=== PATIENT | female | born 1980 | race Caucasian/White ===

== ENCOUNTER 2016-07-26 20:30 | Emergency (ER) | payer OTHER ==
[2016-07-26] MEDS ORDERED: Proparacaine 0.5% Ophth Soln 15 ML Bottle EYEBOTH ONE (20:36)
[2016-07-26] MEDS ORDERED: Proparacaine 0.5% Ophth Soln 15 ML Bottle ONE (20:37)
[2016-07-26 20:42] VITALS: BP 175/98
[2016-07-26] MEDS ORDERED: Erythromycin Base 0.5% Ophth Oint 1 GM Tube EYEBOTH ONE (20:45)
--- NOTE | 2016-07-26 20:58 | EDM.PDOC ---
ED HPI EYE COMPLAINT - General Chief Complaint: Eye Problems Stated Complaint: PT HURT LT EYE Time Seen by Provider: 07/26/16 20:40 - History of Present Illness INITIAL COMMENTS - FREE TEXT/NARRATIVE: HISTORY AND PHYSICAL: History of present illness: Patient 36-year-old white female presents status post blunt trauma to her left eye which occurred with the corner of a bed frame this was blood in backboard she denies other trauma or concern she does have a history diabetes Review of systems: As per history of present illness and below otherwise all systems reviewed and negative. Past medical history: As per history of present illness and as reviewed below otherwise noncontributory. Surgical history: As per history of present illness and as reviewed below otherwise noncontributory. Social history: No reported history of drug or alcohol abuse. Family history: As per history of present illness and as reviewed below otherwise noncontributory. Physical exam: HEENT: Atraumatic, normocephalic, pupils reactive, negative for conjunctival pallor or scleral icterus, mucous membranes moist, throat clear, neck supple, nontender, trachea midline. Anterior chamber clear funduscopic exam limited Globe grossly intact large corneal abrasion noted with fluoresceins stain 12:00 to 5:00 position Lungs: Clear to auscultation, breath sounds equal bilaterally, chest nontender. Heart: S1S2, regular, negative for clicks, rubs, or JVD. Abdomen: Soft, nondistended, nontender. Negative for masses or hepatosplenomegaly. Negative for costovertebral tenderness. Pelvis: Stable nontender. Genitourinary: Deferred. Rectal: Deferred. Extremities: Atraumatic, negative for cords or calf pain. Neurovascular unremarkable. Neuro: Awake, alert, oriented. Cranial nerves II through XII unremarkable. Cerebellum unremarkable. Motor and sensory unremarkable throughout. Exam nonfocal. Diagnostics: None Therapeutics: Ophthalmic irrigation and erythromycin ophthalmic ointment Impression: #1 corneal abrasion left eye secondary to blunt trauma Definitive disposition and diagnosis as appropriate pending reevaluation and review of above. - Related Data Allergies/ADRs: Allergies No Known Allergies Allergy (Verified 04/21/16 10:10) Home Meds: Ambulatory Orders Medication Instructions Recorded Confirmed DULoxetine [Cymbalta] 1 cap PO QAM 02/26/16 07/26/16 Diazepam [Valium] 1 tab PO ASDIRECTED PRN 02/26/16 07/26/16 Gabapentin [Neurontin] 2 cap PO TID 02/26/16 07/26/16 Insulin Aspart [NovoLOG] 200 unit SQ ASDIRECTED 02/26/16 07/26/16 Insulin Detemir [Levemir] 150 unit SQ BID 02/26/16 07/26/16 Losartan Potassium 1 tab PO QAM 02/26/16 07/26/16 Methocarbamol 1 tab PO TID 02/26/16 07/26/16 Phentermine HCl 1 cap PO ACBREAKFAST 02/26/16 07/26/16 Zolpidem Tartrate 1 tab PO BEDTIME 02/26/16 07/26/16 atorvaSTATin Calcium [Atorvastatin 1 tab PO DAILY 02/26/16 07/26/16 Calcium] buPROPion HCl [Wellbutrin Xl] 1 tab PO QAM 02/26/16 07/26/16 metFORMIN HCl [Glucophage] 1 tab PO BID 02/26/16 07/26/16 Sulfamethoxazole/Trimethoprim 1 each PO BID #28 tablet 04/21/16 07/26/16 [Bactrim Ds Tablet] Past Medical History Other HEENT History: has upper denture Cardiovascular History: Reports: High cholesterol, Hypertension Respiratory History: Reports: Pneumothorax Other Respiratory History: fx ribs and punctured lung from falling off a horse Gastrointestinal History: Reports: GERD Genitourinary History: Reports: 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: Musculoskeletal History: Reports: Back pain, chronic, Fracture, Neck pain, chronic Other Musculoskeletal History: hx of fx ankle and ribs, has myofacial pain syndrome Neurological History: Reports: Neuropathy, diabetic Other Neuro History: 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 Psychiatric History: Reports: Anxiety, Depression Endocrine/Metabolic History: Reports: Diabetes, type I, Obesity/BMI 30+ Hematologic History: Reports: None Immunologic History: Reports: None Oncologic (Cancer) History: Reports: None Dermatologic History: Reports: None - Infectious Disease History Infectious Disease History: Reports: Chicken pox - Past Surgical History Head Surgeries/Procedures: Reports: None HEENT Surgical History: Reports: None Cardiovascular Surgical History: Reports: None Other Respiratory Surgeries/Procedures: chest tube insertion GI Surgical History: Reports: Appendectomy Female Surgical History: Reports: section Endocrine Surgical History: Reports: None Neurological Surgical History: Reports: None Musculoskeletal Surgical History: Reports: None Oncologic Surgical History: Reports: None Dermatological Surgical History: Reports: None Social & Family History - Family History Family Medical History: Noncontributory - Tobacco Use Smoking Status *Q: Former Smoker - Caffeine Use Caffeine Use: Reports: Soda - Recreational Drug Use Recreational Drug Use: No Drug Use in Last 12 Months: No ED ROS GENERAL - Review of Systems Review Of Systems: ROS reveals no pertinent complaints other than HPI. ED EXAM GENERAL W FULL EYE - Physical Exam Exam: See Below (See dictation) Course - Vital Signs Text/Narrative:: Discuss case with Dr. Swan ophthalmology solution specialist will see the patient in the morning patient will also be instructed to call ER for any persistent or worsening pain and Dr. Garcia will be available accordingly patient given hydrocodone for pain erythromycin abdomen appointment is to return as needed as discussed Last Recorded V/S: Last Vital Signs Temp 36.0 C 07/26/16 20:39 Pulse 102 H 07/26/16 20:39 Resp 20 07/26/16 20:39 BP 175/98 H 07/26/16 20:39 Pulse Ox 97 07/26/16 20:39 - Orders/Labs/Meds Meds: Medications Discontinued Medications Generic Name Dose Route Start Last Admin Trade Name Rudolphq PRN Reason Stop Dose Admin Erythromycin 1 gm 07/26/16 20:45 07/26/16 20:52 Erythromycin 0.5% Ophth Oint EYEBOTH 07/26/16 20:46 1 tab ONETIME ONE Administration Proparacaine HCl 1 ml 07/26/16 20:36 07/26/16 20:53 Proparacaine 0.5% Ophth Soln EYEBOTH 07/26/16 20:37 2 drop ONETIME ONE Administration Proparacaine HCl Confirm 07/26/16 20:37 07/26/16 20:46 Proparacaine 0.5% Ophth Soln Administered 07/26/16 20:38 Not Given Dose 15 ml .ROUTE .STK-MED ONE Departure - Departure Time of Disposition: 20:57 Disposition: Home, Self-Care 01 Condition: good Clinical Impression: Corneal abrasion Referrals: PCP,None [Primary Care Provider] - Forms: ED Department Discharge Additional Instructions: Appointment tomorrow at 11am at [facility] with Dr. Garcia. Please call the ER if pain is unmanageable. The following information is given to patients seen in the emergency department who are being discharged to home. This information is to outline your options for follow-up care. We provide all patients seen in our emergency department with a follow-up referral. The need for follow-up, as well as the timing and circumstances, are variable depending upon the specifics of your emergency department visit. If you don't have a primary care physician on staff, we will provide you with a referral. We always advise you to contact your personal physician following an emergency department visit to inform them of the circumstance of the visit and for follow-up with them and/or the need for any referrals to a consulting specialist. The emergency department will also refer you to a specialist when appropriate. This referral assures that you have the opportunity for followup care with a specialist. All of these measure are taken in an effort to provide you with optimal care, which includes your followup. Under all circumstances we always encourage you to contact your private physician who remains a resource for coordinating your care. When calling for followup care, please make the office aware that this follow-up is from your recent emergency room visit. If for any reason you are refused follow-up, please contact the [facility] emergency department at and asked to speak to the emergency department charge nurse. Jessica as prescribed followup above as discussed return as needed this is
== END 2016-07-26 21:06 | disposition home or self-care (01) ==
LOC: MW.ED 20:30
DX: S05.02XA Injury of conjunctiva and corneal abrasion without foreign body, left eye, initial encounter (principal); E78.00 Pure hypercholesterolemia, unspecified; I10 Essential (primary) hypertension; K21.9 Gastro-esophageal reflux disease without esophagitis; F41.9 Anxiety disorder, unspecified; F32.9 Major depressive disorder, single episode, unspecified; E10.9 Type 1 diabetes mellitus without complications; E66.9 Obesity, unspecified; Z90.49 Acquired absence of other specified parts of digestive tract; Z87.891 Personal history of nicotine dependence; W22.8XXA Striking against or struck by other objects, initial encounter
CPT/HCPCS: 99283; A9270

== ENCOUNTER 2016-07-27 23:00 | Emergency (ER) | payer OTHER ==
[2016-07-27] MEDS ORDERED: Proparacaine 0.5% Ophth Soln 15 ML Bottle ONE (23:06)
[2016-07-27 23:10] VITALS: BP 167/77
--- NOTE | 2016-07-27 23:13 | EDM.PDOC ---
ED HPI EYE COMPLAINT - General Chief Complaint: Eye Problems Stated Complaint: PT HURT EYE Time Seen by Provider: 07/27/16 23:11 - History of Present Illness INITIAL COMMENTS - FREE TEXT/NARRATIVE: HISTORY AND PHYSICAL: History of present illness: Patient Jeremias Herrera presents 24 hours status post coracobrachialis she did see ophthalmology today is here with recurrent pain there is no new trauma or other concern. Review of systems: As per history of present illness and below otherwise all systems reviewed and negative. Past medical history: As per history of present illness and as reviewed below otherwise noncontributory. Surgical history: As per history of present illness and as reviewed below otherwise noncontributory. Social history: No reported history of drug or alcohol abuse. Family history: As per history of present illness and as reviewed below otherwise noncontributory. Physical exam: HEENT: Atraumatic, normocephalic, pupils reactive, negative for conjunctival pallor or scleral icterus, mucous membranes moist, throat clear, neck supple, nontender, trachea midline. No significant interval change no worsening Lungs: Clear to auscultation, breath sounds equal bilaterally, chest nontender. Heart: S1S2, regular, negative for clicks, rubs, or JVD. Abdomen: Soft, nondistended, nontender. Negative for masses or hepatosplenomegaly. Negative for costovertebral tenderness. Pelvis: Stable nontender. Genitourinary: Deferred. Rectal: Deferred. Extremities: Atraumatic, negative for cords or calf pain. Neurovascular unremarkable. Neuro: Awake, alert, oriented. Cranial nerves II through XII unremarkable. Cerebellum unremarkable. Motor and sensory unremarkable throughout. Exam nonfocal. Diagnostics: None Therapeutics: Proparacaine ophthalmic drops and reapplication of her patch Impression: #1 corneal abrasion left eye Definitive disposition and diagnosis as appropriate pending reevaluation and review of above. - Related Data Allergies/ADRs: Allergies No Known Allergies Allergy (Verified 04/21/16 10:10) Home Meds: Ambulatory Orders Medication Instructions Recorded Confirmed DULoxetine [Cymbalta] 1 cap PO QAM 02/26/16 07/26/16 Diazepam [Valium] 1 tab PO ASDIRECTED PRN 02/26/16 07/26/16 Gabapentin [Neurontin] 2 cap PO TID 02/26/16 07/26/16 Insulin Aspart [NovoLOG] 200 unit SQ ASDIRECTED 02/26/16 07/26/16 Insulin Detemir [Levemir] 150 unit SQ BID 02/26/16 07/26/16 Losartan Potassium 1 tab PO QAM 02/26/16 07/26/16 Methocarbamol 1 tab PO TID 02/26/16 07/26/16 Phentermine HCl 1 cap PO ACBREAKFAST 02/26/16 07/26/16 Zolpidem Tartrate 1 tab PO BEDTIME 02/26/16 07/26/16 atorvaSTATin Calcium [Atorvastatin 1 tab PO DAILY 02/26/16 07/26/16 Calcium] buPROPion HCl [Wellbutrin Xl] 1 tab PO QAM 02/26/16 07/26/16 metFORMIN HCl [Glucophage] 1 tab PO BID 02/26/16 07/26/16 Sulfamethoxazole/Trimethoprim 1 each PO BID #28 tablet 04/21/16 07/26/16 [Bactrim Ds Tablet] Past Medical History Other HEENT History: has upper denture Cardiovascular History: Reports: High cholesterol, Hypertension Respiratory History: Reports: Pneumothorax Other Respiratory History: fx ribs and punctured lung from falling off a horse Gastrointestinal History: Reports: GERD Genitourinary History: Reports: None 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: Musculoskeletal History: Reports: Back pain, chronic, Fracture, Neck pain, chronic Other Musculoskeletal History: hx of fx ankle and ribs, has myofacial pain syndrome Neurological History: Reports: Neuropathy, diabetic Other Neuro History: 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 Psychiatric History: Reports: Anxiety, Depression Endocrine/Metabolic History: Reports: Diabetes, type I, Obesity/BMI 30+ Hematologic History: Reports: None Immunologic History: Reports: None Oncologic (Cancer) History: Reports: None Dermatologic History: Reports: None - Infectious Disease History Infectious Disease History: Reports: Chicken pox - Past Surgical History Head Surgeries/Procedures: Reports: None HEENT Surgical History: Reports: None Cardiovascular Surgical History: Reports: None Other Respiratory Surgeries/Procedures: chest tube insertion GI Surgical History: Reports: Appendectomy Female Surgical History: Reports: section Endocrine Surgical History: Reports: None Neurological Surgical History: Reports: None Musculoskeletal Surgical History: Reports: None Oncologic Surgical History: Reports: None Dermatological Surgical History: Reports: None Social & Family History - Family History Family Medical History: Noncontributory - Tobacco Use Smoking Status *Q: Never Smoker - Caffeine Use Caffeine Use: Reports: None - Recreational Drug Use Recreational Drug Use: No Drug Use in Last 12 Months: No ED ROS GENERAL - Review of Systems Review Of Systems: ROS reveals no pertinent complaints other than HPI. ED EXAM GENERAL W FULL EYE - Physical Exam Exam: See Below (See dictation) Course - Vital Signs Text/Narrative:: Discussed case with ophthalmology Dr. Garcia who agrees with reapplication of patch proparacaine drops prior to discharge followup as discussed Last Recorded V/S: Last Vital Signs Temp 36.5 C 07/27/16 23:08 Pulse 95 07/27/16 23:08 Resp 22 H 07/27/16 23:08 BP 167/77 H 07/27/16 23:08 Pulse Ox 93 L 07/27/16 23:08 - Orders/Labs/Meds Meds: Medications Discontinued Medications Generic Name Dose Route Start Last Admin Trade Name Freq PRN Reason Stop Dose Admin Proparacaine HCl Confirm 07/27/16 23:06 Proparacaine 0.5% Ophth Soln Administered 07/27/16 23:07 Dose 15 ml .ROUTE .STK-MED ONE Departure - Departure Time of Disposition: 23:13 Disposition: Home, Self-Care 01 Condition: good Clinical Impression: Corneal abrasion Forms: ED Department Discharge Additional Instructions: The following information is given to patients seen in the emergency department who are being discharged to home. This information is to outline your options for follow-up care. We provide all patients seen in our emergency department with a follow-up referral. The need for follow-up, as well as the timing and circumstances, are variable depending upon the specifics of your emergency department visit. If you don't have a primary care physician on staff, we will provide you with a referral. We always advise you to contact your personal physician following an emergency department visit to inform them of the circumstance of the visit and for follow-up with them and/or the need for any referrals to a consulting specialist. The emergency department will also refer you to a specialist when appropriate. This referral assures that you have the opportunity for followup care with a specialist. All of these measure are taken in an effort to provide you with optimal care, which includes your followup. Under all circumstances we always encourage you to contact your private physician who remains a resource for coordinating your care. When calling for followup care, please make the office aware that this follow-up is from your recent emergency room visit. If for any reason you are refused follow-up, please contact the [facility] emergency department at and asked to speak to the emergency department charge nurse. Followup ophthalmology as discussed patch as directed return as needed as discussed
[2016-07-27] MEDS ORDERED: Proparacaine 0.5% Ophth Soln 15 ML Bottle EYELF ONE (23:16)
== END 2016-07-27 23:24 | disposition home or self-care (01) ==
LOC: MW.ED 23:00
DX: S05.02XA Injury of conjunctiva and corneal abrasion without foreign body, left eye, initial encounter (principal); I10 Essential (primary) hypertension; E78.00 Pure hypercholesterolemia, unspecified; K21.9 Gastro-esophageal reflux disease without esophagitis; E10.9 Type 1 diabetes mellitus without complications; E66.9 Obesity, unspecified; F41.8 Other specified anxiety disorders; Z90.49 Acquired absence of other specified parts of digestive tract; Z98.890 Other specified postprocedural states; Z79.899 Other long term (current) drug therapy; Z68.42 Body mass index [BMI] 45.0-49.9, adult; X58.XXXA Exposure to other specified factors, initial encounter
CPT/HCPCS: 99282; 99283

== ENCOUNTER 2016-11-17 11:56 | Emergency (ER) | payer OTHER ==
[2016-11-17] MEDS ORDERED: Proparacaine 0.5% Ophth Soln 15 ML Bottle EYELF STA (12:15)
[2016-11-17] MEDS ORDERED: Erythromycin Base 0.5% Ophth Oint 1 GM Tube EYELF ONE (12:37)
--- NOTE | 2016-11-17 12:50 | EDM.PDOC ---
ED HPI GENERAL MEDICAL PROBLEM - General Chief Complaint: Eye Problems Stated Complaint: HIT IN THE EYE WITH REMOTE Time Seen by Provider: 11/17/16 12:16 Source of Information: Reports: Patient, Family History Limitations: Reports: No Limitations - History of Present Illness INITIAL COMMENTS - FREE TEXT/NARRATIVE: HISTORY AND PHYSICAL: []36-year-old female presenting with eye pain to her left eye History of Present Illness: []Patient was in bed and the remote fell striking her in her left eye yesterday Pain has not lessened Review of Systems: As per history of present illness and below otherwise all systems reviewed and negative. Past medical history: As per history of present illness and as reviewed below otherwise noncontributory. Surgical history: As per history of present illness and as reviewed below otherwise noncontributory. Social history: No reported history of drug or alcohol abuse. Family history: As per history of present illness and as reviewed below otherwise noncontributory. Physical exam: Oriented female alert, constantly rubbing her eye. Answering questions appropriately. HEENT: Atraumatic, normocehpalic, pupils reactive, negative for conjunctival pallor or scleral icterus, mucous membranes moist, throat clear, neck supple, nontender, trachea midline. Lungs: Clear to auscultation, breath sounds equal bilaterally, chest non tender. Extremities: Atraumatic, negative for cords or calf pain. Neurovascular unremarkable. Neuro: Awake, alert, oriented. Cranial nerves II through XII unremarkable. Cerebellum unremarkable. Motor and sensory unremarkable throughout. Exam nonfocal. Proparacaine drops were instilled with good anesthesia effect. [place]-Pen was utilized and 54 with the pressure with 95% sensitivity . Fluorescein strip was utilized and a Recinos lamp. A small corneal abrasion noted at the 5 o'clock position just at the line of the pupil and iris. Discussed the patient with Dr. Segundo Garcia, cotton wringer. He will see the patient tomorrow for follow-up. Diagnostics: [Recinos lamp] Therapeutics: [Proparacaine drops] Impression: [Corneal abrasion] Plan: [Erythromycin ointment and placed onto the lower eyelid. Soft tissue pad was placed and taped into position. Have contacted Dr. Garcia and he will work the patient into his schedule. Present to the [facility] at 8 AM for reevaluation Patient and are agreeable to this recommended course of action.] Definitive disposition and diagnosis as appropriate pending reevaluation and review of above. Onset: Sudden Duration: Day(s): (1) left eye Pain Score (Numeric/FACES): 9 - Related Data Allergies Allergy/AdvReac Type Severity Reaction Status Date / Time No Known Allergies Allergy Verified 11/17/16 12:07 Home Meds: Home Meds DULoxetine [Cymbalta] 1 cap PO QAM 02/26/16 [History] Diazepam [Valium] 1 tab PO ASDIRECTED PRN 02/26/16 [History] Gabapentin [Neurontin] 2 cap PO TID 02/26/16 [History] Insulin Aspart [NovoLOG] 200 unit SQ ASDIRECTED 02/26/16 [History] Insulin Detemir [Levemir] 150 unit SQ BID 02/26/16 [History] Losartan Potassium 1 tab PO QAM 02/26/16 [History] Methocarbamol 1 tab PO TID 02/26/16 [History] Phentermine HCl 1 cap PO ACBREAKFAST 02/26/16 [History] Zolpidem Tartrate 1 tab PO BEDTIME 02/26/16 [History] atorvaSTATin Calcium [Atorvastatin Calcium] 1 tab PO DAILY 02/26/16 [History] buPROPion HCl [Wellbutrin Xl] 1 tab PO QAM 02/26/16 [History] metFORMIN HCl [Glucophage] 1 tab PO BID 02/26/16 [History] Sulfamethoxazole/Trimethoprim [Bactrim Ds Tablet] 1 each PO BID #28 tablet 04/21 [Rx] Past Medical History Other HEENT History: has upper denture Cardiovascular History: Reports: High Cholesterol, Hypertension Respiratory History: Reports: Pneumonia, Recurrent, Pneumothorax Other Respiratory History: fx ribs and punctured lung from falling off a horse Gastrointestinal History: Reports: GERD Genitourinary History: Reports: None 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: Musculoskeletal History: Reports: Back Pain, Chronic, Fracture, Neck Pain, Chronic Other Musculoskeletal History: hx of fx ankle and ribs, has myofacial pain syndrome Neurological History: Reports: Neuropathy, Diabetic Other Neuro History: 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 Psychiatric History: Reports: Anxiety, Bipolar, Depression Endocrine/Metabolic History: Reports: Diabetes, Type I, Obesity/BMI 30+ Hematologic History: Reports: None Immunologic History: Reports: None Oncologic (Cancer) History: Reports: None Dermatologic History: Reports: None - Infectious Disease History Infectious Disease History: Reports: None, Chicken Pox - Past Surgical History Head Surgeries/Procedures: Reports: None HEENT Surgical History: Reports: None Other Respiratory Surgeries/Procedures: chest tube insertion GI Surgical History: Reports: Appendectomy Female Surgical History: Reports: Section Oncologic Surgical History: Reports: None Dermatological Surgical History: Reports: None Social & Family History - Family History Family Medical History: Noncontributory - Tobacco Use Smoking Status *Q: Former Smoker Used Tobacco, but Quit: No - Caffeine Use Caffeine Use: Reports: Coffee - Recreational Drug Use Recreational Drug Use: No Drug Use in Last 12 Months: No ED ROS GENERAL - Review of Systems Review Of Systems: ROS reveals no pertinent complaints other than HPI. ED EXAM GENERAL W FULL EYE - Physical Exam Exam: See Below (See dictation) Course - Vital Signs Last Recorded V/S: Last Vital Signs Temp 36.1 C 11/17/16 12:07 Pulse 85 11/17/16 12:07 Resp 18 11/17/16 12:07 BP 166/93 H 11/17/16 12:07 Pulse Ox 100 11/17/16 12:07 - Orders/Labs/Meds Meds: Medications Discontinued Medications Generic Name Dose Route Start Last Admin Trade Name Do PRN Reason Stop Dose Admin Erythromycin 1 gm 11/17/16 12:37 Erythromycin 0.5% Ophth Oint EYELF 11/17/16 12:38 ONETIME ONE Proparacaine HCl 1 ml 11/17/16 12:15 11/17/16 12:20 Proparacaine 0.5% Ophth Soln EYELF 11/17/16 12:16 1 ml NOW STA Administration Departure - Departure Time of Disposition: 12:50 Disposition: Home, Self-Care 01 Condition: Good Clinical Impression: Corneal abrasion Qualifiers: Encounter type: initial encounter Laterality: left Qualified Code(s): S05.02XA - Injury of conjunctiva and corneal abrasion without foreign body, left eye, initial encounter - Discharge Information Referrals: Segundo Covington MD [Primary Care Provider] - Forms: ED Department Discharge Additional Instructions: The following information is given to patients seen in the emergency department who are being discharged to home. This information is to outline your options for follow-up care. We provide all patients seen in our emergency department with a follow-up referral. The need for follow-up, as well as the timing and circumstances, are variable depending upon the specifics of your emergency department visit. If you don't have a primary care physician on staff, we will provide you with a referral. We always advise you to contact your personal physician following an emergency department visit to inform them of the circumstance of the visit and for follow-up with them and/or the need for any referrals to a consulting specialist. The emergency department will also refer you to a specialist when appropriate. This referral assures that you have the opportunity for followup care with a specialist. All of these measure are taken in an effort to provide you with optimal care, which includes your followup. Under all circumstances we always encourage you to contact your private physician who remains a resource for coordinating your care. When calling for followup care, please make the office aware that this follow-up is from your recent emergency room visit. If for any reason you are refused follow-up, please contact the [facility] emergency department at and asked to speak to the emergency department charge nurse. Erythromycin ointment to left eye every 6 hours while awake See Dr. Segundo Garcia tomorrow morning 8 AM
[2016-11-17 13:45] VITALS: BP 142/70
== END 2016-11-17 13:05 | disposition home or self-care (01) ==
LOC: MW.ED 11:56
DX: S05.02XA Injury of conjunctiva and corneal abrasion without foreign body, left eye, initial encounter (principal); E78.00 Pure hypercholesterolemia, unspecified; I10 Essential (primary) hypertension; Z87.01 Personal history of pneumonia (recurrent); K21.9 Gastro-esophageal reflux disease without esophagitis; E11.40 Type 2 diabetes mellitus with diabetic neuropathy, unspecified; E66.9 Obesity, unspecified; F41.9 Anxiety disorder, unspecified; F32.9 Major depressive disorder, single episode, unspecified; Z90.49 Acquired absence of other specified parts of digestive tract; Z79.84 Long term (current) use of oral hypoglycemic drugs; Z79.4 Long term (current) use of insulin; Z68.41 Body mass index [BMI] 40.0-44.9, adult; Z79.899 Other long term (current) drug therapy; Z87.891 Personal history of nicotine dependence; W20.8XXA Other cause of strike by thrown, projected or falling object, initial encounter
CPT/HCPCS: 99283; A9270

== ENCOUNTER 2016-12-05 09:22 | Day surgery (SDC) | payer OTHER ==
[~2016-12-05 09:22] MED LIST: Bupivacaine 0.25%/EPINEPHrine 1:200,000 10 ML SDV ONE; Lactated Ringers 1,000 ML IV SCH; ceFAZolin 2 GM in Premix Bag 1 BAG IV ONE
[2016-12-05] MEDS ORDERED: Lidocaine 2% 5 ML SDV ONE (10:01)
[2016-12-05] MEDS ORDERED: fentaNYL 250 MCG/5 ML SDV ONE (10:01)
[2016-12-05] MEDS ORDERED: Propofol 200 MG/20 ML SDV ONE (10:01)
[2016-12-05] MEDS ORDERED: Midazolam 1 MG/ML 2 ML SDV ONE (10:01)
[2016-12-05] MEDS ORDERED: Ondansetron 4 MG/2 ML SDV ONE (10:01)
[2016-12-05] MEDS ORDERED: Succinylcholine/Normal Saline 200 MG/10 ML Syringe ONE (10:34)
--- NOTE | 2016-12-05 10:35 | PCM.PREANE ---
Preanesthetic Assessment - Anesthesia/Transfusion/Family Hx Anesthesia History: Prior Anesthesia Without Reaction Family History of Anesthesia Reaction: No Transfusion History: No Prior Transfusion(s) Intubation History: Unknown - Review of Systems General: No Symptoms Pulmonary: No Symptoms Cardiovascular: No Symptoms Gastrointestinal: No Symptoms Neurological: No Symptoms Other: Reports: None - Physical Assessment NPO Status Date: 12/04/16 NPO Status Time: 22:00 O2 Sat by Pulse Oximetry: 96 Respiratory Rate: 16 Vital Signs: Last Vital Signs Temp 36.7 C 12/05/16 09:43 Pulse 93 12/05/16 09:43 Resp 16 12/05/16 09:43 BP 146/83 H 12/05/16 09:43 Pulse Ox 96 12/05/16 09:43 Height: 1.75 m Weight: 138.346 kg ASA Class: 3 Mental Status: Alert & Oriented x3 Airway Class: Mallampati = 2 Dentition: Reports: Dentures (upper) Thyro-Mental Finger Breadths: 3 Mouth Opening Finger Breadths: 2 ROM/Head Extension: Full Lungs: Clear to Auscultation, Normal Respiratory Effort Cardiovascular: Regular Rate, Regular Rhythm - Lab Values: Laboratory Last Values Urine HCG, Qual NEGATIVE (NEGATIVE) 12/05/16 09:23 - Allergies Allergies/Adverse Reactions: Allergies Allergy/AdvReac Type Severity Reaction Status Date / Time No Known Allergies Allergy Verified 11/17/16 12:07 - Blood Blood Available: No - Anesthesia Plan Pre-Op Medication Ordered: None - Acknowledgements Anesthesia Type Planned: General Anesthesia Pt an Appropriate Candidate for the Planned Anesthesia: Yes Alternatives and Risks of Anesthesia Discussed w Pt/Guardian: Yes Pt/Guardian Understands and Agrees with Anesthesia Plan: Yes PreAnesthesia Questionnaire Other HEENT History: has upper denture Cardiovascular History: Reports: High Cholesterol, Hypertension Respiratory History: Reports: Pneumothorax (after falling off the horse at age 18) Other Respiratory History: fx ribs and punctured lung from falling off a horse Gastrointestinal History: Reports: GERD Genitourinary History: Reports: None 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: Musculoskeletal History: Reports: Back Pain, Chronic, Fracture, Neck Pain, Chronic Other Musculoskeletal History: hx of fx ankle and ribs, has myofacial pain syndrome Neurological History: Reports: Neuropathy, Diabetic Other Neuro History: 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 Psychiatric History: Reports: Anxiety, Bipolar, Depression Endocrine/Metabolic History: Reports: Diabetes, Type I, Obesity/BMI 30+ Hematologic History: Reports: None Immunologic History: Reports: None Oncologic (Cancer) History: Reports: None Dermatologic History: Reports: None - Infectious Disease History Infectious Disease History: Reports: None, Chicken Pox - Past Surgical History Head Surgeries/Procedures: Reports: None HEENT Surgical History: Reports: None Cardiovascular Surgical History: Reports: None Other Respiratory Surgeries/Procedures: chest tube insertion GI Surgical History: Reports: Appendectomy Female Surgical History: Reports: Section, Other (See Below) Other Female Surgeries/Procedures: previous exc of hidrandenitits suppurativa on left side in 02/17 Endocrine Surgical History: Reports: None Neurological Surgical History: Reports: None Musculoskeletal Surgical History: Reports: None Oncologic Surgical History: Reports: None Dermatological Surgical History: Reports: None - SUBSTANCE USE Smoking Status *Q: Former Smoker Tobacco Use Within Last Twelve Months: No, Cigarettes Recreational Drug Use History: No - HOME MEDS Home Medications: Home Meds Diazepam [Valium] 1 tab PO ASDIRECTED PRN 02/26/16 [History] Gabapentin [Neurontin] 2 cap PO TID 02/26/16 [History] Insulin Aspart [NovoLOG] 1 injection SQ ASDIRECTED 02/26/16 [History] Insulin Detemir [Levemir] 125 unit SQ BID 02/26/16 [History] Losartan Potassium 1 tab PO QAM 02/26/16 [History] Methocarbamol 1 tab PO TID PRN 02/26/16 [History] Zolpidem Tartrate 1 tab PO BEDTIME 02/26/16 [History] atorvaSTATin Calcium [Atorvastatin Calcium] 1 tab PO DAILY 02/26/16 [History] buPROPion HCl [Wellbutrin Xl] 1 tab PO QAM 02/26/16 [History] metFORMIN HCl [Glucophage] 1 tab PO BID 02/26/16 [History] Clindamycin Hcl [IJD: Clindamycin HCl] 300 mg PO TID 12/03/16 [History] Fluocinonide [Lidex 0.05% Crm] 1 applic TOP ASDIRECTED 12/03/16 [History] Hydrocortisone [Hydrocortisone 2.5% Crm] 1 applic TOP ASDIRECTED PRN 12/03/16 [ History] oxyCODONE HCl/Acetaminophen [oxyCODONE-Acetaminophen 5-325] 1 tab PO ASDIRECTED PRN 12/03/16 [History] traMADol HCl [Tramadol HCl] 1 tab PO ASDIRECTED PRN 12/03/16 [History] - CURRENT (IN HOUSE) MEDS Current Meds: Current Medications Lactated Ringer's (Ringers, Lactated) 1,000 mls @ 125 mls/hr IV ASDIRECTED HARVEY Last Admin: 12/05/16 09:45 Dose: 125 mls/hr Discontinued Medications Bupivacaine HCl/Epinephrine Bitart (Marcaine 0.25%/Epinephrine 1:200,000) Confirm Administered Dose 20 ml .ROUTE .STK-MED ONE Stop: 12/05/16 07:28 Fentanyl (Sublimaze) Confirm Administered Dose 250 mcg .ROUTE .STK-MED ONE Stop: 12/05/16 10:02 Cefazolin Sodium/Dextrose 2 gm (/ Premix) 50 mls @ 100 mls/hr IV ONETIME ONE Stop: 12/05/16 05:29 Lidocaine (Xylocaine-Mpf 2%) Confirm Administered Dose 5 ml .ROUTE .STK-MED ONE Stop: 12/05/16 10:02 Midazolam HCl (Versed 1 Mg/Ml) Confirm Administered Dose 2 mg .ROUTE .STK-MED ONE Stop: 12/05/16 10:02 Ondansetron HCl (Zofran) Confirm Administered Dose 4 mg .ROUTE .STK-MED ONE Stop: 12/05/16 10:02 Propofol (Diprivan 20 Ml) Confirm Administered Dose 200 mg .ROUTE .STK-MED ONE Stop: 12/05/16 10:02
[2016-12-05] MEDS ORDERED: HYDROmorphone 2 MG/ML Syringe ONE (11:22)
--- NOTE | 2016-12-05 11:40 | PCM.OPNOTE ---
- General Post-Op/Procedure Note Date of Surgery/Procedure: 12/05/16 Operative Procedure(s): excisional bx R axilla recurrent hidradenitis suppurativa Findings: active infection with purulent drainage from R axilla;[id number] Pre Op Diagnosis: r axilla hidradenitis suppurativa, recurrent Post-Op Diagnosis: Same Anesthesia Technique: General LMA Primary Surgeon: Leroy Yanes Pathology: sent Complications: None Condition: Good
[2016-12-05] MEDS ORDERED: Acetaminophen/oxyCODONE 325-7.5 MG Tab PO ONE (11:44)
[2016-12-05 13:18] VITALS: BP 135/65
--- NOTE | 2016-12-06 06:42 | OR ---
SURGEON: Leroy Yanes MD DATE OF PROCEDURE: 12/05/2016 PREOPERATIVE DIAGNOSIS: Recurrent hidradenitis suppurativa on the right axilla. POSTOPERATIVE DIAGNOSIS: Recurrent hidradenitis suppurativa on the right axilla. PROCEDURE PERFORMED: Excisional biopsy. COMPLICATIONS: None. FINDINGS: 1. Still has draining pus in the area. 2. Area is continued to be inflamed. 3. Skin excised is 10 x 3 cm. PROCEDURE IN DETAIL: The patient was taken to the operating room and placed in supine position. Upon induction of LMA, the patient's right axilla was prepped and draped in a sterile fashion and time-out was then called. The patient was identified, procedure was identified, and antibiotic given. Procedure was then started. A strip of skin 10 x 3 was excited from the right axilla and sent for pathology and excision down to the subcutaneous yellow fat and all the pink color suggested active hidradenitis disease excised to healthy tissue. Good hemostasis was achieved by use of electrocautery and the wound was irrigated and packed with half-inch iodoform gauze and followed by appropriate dressing. The patient was awakened, extubated and transferred to recovery room in hemodynamically stable condition. The patient tolerated the procedure well. There were no intraoperative complications. Dr. Yanes was present through the whole procedure. Thank you for the kind referral. KIMBERLY MCGUIRE /[id number]
== END 2016-12-05 13:10 | disposition home or self-care (01) ==
LOC: MW.SDS 09:22
PROVIDERS: ATTEND Surgery
PROC: 0JBD0ZZ Excision of Right Upper Arm Subcutaneous Tissue and Fascia, Open Approach (ICD-10-PCS; principal; 2016-12-05)
DX: L73.2 Hidradenitis suppurativa (principal); F41.9 Anxiety disorder, unspecified; F31.9 Bipolar disorder, unspecified; G56.00 Carpal tunnel syndrome, unspecified upper limb; M50.90 Cervical disc disorder, unspecified, unspecified cervical region; M54.5 Low back pain; G89.29 Other chronic pain; M79.7 Fibromyalgia; I10 Essential (primary) hypertension; E78.00 Pure hypercholesterolemia, unspecified; E10.40 Type 1 diabetes mellitus with diabetic neuropathy, unspecified; Z79.4 Long term (current) use of insulin; Z79.84 Long term (current) use of oral hypoglycemic drugs; Z79.899 Other long term (current) drug therapy; Z90.49 Acquired absence of other specified parts of digestive tract; Z98.890 Other specified postprocedural states; Z87.891 Personal history of nicotine dependence; Z68.42 Body mass index [BMI] 45.0-49.9, adult
CPT/HCPCS: 11450; 81025; 87070; 87075; 87205; J1170; J2250; J2405; J3010; J7120; 00300; 88305; J2704

== ENCOUNTER 2018-11-03 18:12 | Emergency (ER) | payer BC ==
--- NOTE | 2018-11-03 18:56 | EDM.PDOC ---
ED HPI GENERAL MEDICAL PROBLEM - General Chief Complaint: Lower Extremity Injury/Pain Stated Complaint: PT HURT RT LEG Time Seen by Provider: 11/03/18 18:46 - History of Present Illness INITIAL COMMENTS - FREE TEXT/NARRATIVE: HISTORY AND PHYSICAL: History of present illness: The patient is a 38-year-old female with a history of hypertension diabetes hypercholesterolemia and diabetic neuropathy who follows with Dr. Covington and has had chronic issues with pain in her lumbar back legs and hips for which she takes multiple medications and has seen our pain specialist Dr. Lu, whom she does not follow any more, and presents saying that she is concerned about increasing pain in her right leg with twitching that she has noticed that started in the last 24 hours. She has not had any recent new trauma and she says that her hemoglobin A1c is 6 and she is off her regular insulin currently. She does tell me that she still eats what she wants and adjust her sugars with insulin therapy although she knows that is not a healthy way to approach things. She says that she is not having any urinary complaints no bowel or bladder disturbances and the pain is localized to her right hip and leg area and she is concerned about new issues problems or circulation issues. She has had x-rays of her hips and back in the past at [facility] and she had an MRI here in May 2018 which revealed a moderate left paracentral disc protrusion at T11-T12 is abutting the spinal cord with mild left neuroforaminal foraminal stenosis. She says in the past she did have pain on the left side and now it is on the right side. She said after that MRI she did to physical therapy and she sees a chiropractor on a regular basis. She says she takes over- the-counter ibuprofen and was told by Dr. Covington she can take up to 12 generic tablets a day and she's been taking about 20 for the last several days to few weeks and she is also on high-dose gabapentin. She says she has tramadol that is not working and in the past Dr. Covington has given her [place] in limited amounts to help her get through episodes of this pain. With all of this going on in the last few days to one week she has not contacted Dr. Covington although she repeatedly tells me that Dr. Covington and her speak often about her symptoms and her management plan. She has no weakness numbness or tingling in her lower extremities. She says that she is here mostly because of the pain over the last 24 hours and of this new twitching that is occurring sporadically and she was concerned about it. Use of breath fevers or chills that she is eating and drinking normally with normal urine output and stools. According to the patient on our conversation and interview Dr. Covington's functioning as her pain management physician currently. She says that intermittently her legs will feel hot and feel cold internally but when she touches them or looks at them they look and feel normal Review of systems: As per history of present illness and below otherwise all systems reviewed and negative. Past medical history: As per history of present illness and as reviewed below otherwise noncontributory. Surgical history: As per history of present illness and as reviewed below otherwise noncontributory. Social history: No reported history of drug or alcohol abuse. Family history: As per history of present illness and as reviewed below otherwise noncontributory. Physical exam: General: Well-developed well-nourished overweight female who is nontoxic and moves very easily in the ED without distress. HEENT: Atraumatic, normocephalic,, negative for conjunctival pallor or scleral icterus, mucous membranes moist, throat clear, neck supple, nontender, trachea midline. Lungs: Clear to auscultation, breath sounds equal bilaterally, chest nontender. Heart: S1S2, regular, negative for clicks, rubs, or JVD. Abdomen: Soft, nondistended, nontender. Negative for masses or hepatosplenomegaly. Negative for costovertebral tenderness. Pelvis: Stable nontender. Genitourinary: Deferred. Rectal: Deferred. Extremities: Atraumatic, negative for cords or calf pain. Neurovascular unremarkable. Full range of motion without defects or deficits. Doppler pulses at the dorsalis pedis and posterior tibial are triphasic bilaterally. Neuro: Awake, alert, oriented. Cranial nerves II through XII unremarkable. Cerebellum unremarkable. Motor and sensory unremarkable throughout. Exam nonfocal. Dorsi and plantar flexion is intact 5/5 inclusive of the great toe and inversion and eversion of the feet is intact bilaterally. Patellar reflexes are +2 over 4 bilaterally. Back: There are no midline step-offs in his defects of the thoracic or lumbar spine and no posterior pelvis tenderness Diagnostics: Accu-Chek CBC CMP CPK magnesium CT scan performed on May 18 of this year was reviewed please see above Therapeutics: [place] 7.5/325 I discussed with the patient that currently she does not need any emergent imaging and her pain is more acute on chronic and there are no neurologic findings to indicate need for emergent MRI. Explained to her that the disc issues that she had on the prior MRI May BE reaggravated and that she may need a repeat MRI going forward. I also discussed with her that she needs to discuss her pain medication and her pain management with Dr. Covington as he is functioning as her pain management doctor. As in the past she has given her a few [place] to tide her over I agreed that I would give her a dose here as well as a few tablets for home but strongly advised that she contact the clinic first thing in the morning and have a dialogue with him about her care plan. She states understanding Impression: Acute on chronic back pain, acute on chronic peripheral neuropathy Definitive disposition and diagnosis as appropriate pending reevaluation and review of above. right leg Pain Score (Numeric/FACES): 9 - Related Data Allergies Allergy/AdvReac Type Severity Reaction Status Date / Time No Known Allergies Allergy Verified 11/03/18 18:23 Home Meds: Home Meds Insulin Aspart [NovoLOG] 1 injection SQ ASDIRECTED 02/26/16 [History] Losartan Potassium 1 tab PO QAM 02/26/16 [History] Zolpidem Tartrate 1 tab PO BEDTIME 02/26/16 [History] atorvaSTATin Calcium [Atorvastatin Calcium] 1 tab PO DAILY 02/26/16 [History] metFORMIN HCl [Glucophage] 1 tab PO BID 02/26/16 [History] traMADol HCl [Tramadol HCl] 1 tab PO ASDIRECTED PRN 12/03/16 [History] QUEtiapine [SEROquel] 25 mg PO BEDTIME 11/03/18 [History] hydrOXYzine HCl [hydrOXYzine] 1 dose PO ASDIRECTED PRN 11/03/18 [History] Past Medical History HEENT History: Reports: Other (See Below) Other HEENT History: has upper denture Cardiovascular History: Reports: High Cholesterol, Hypertension Respiratory History: Reports: Pneumothorax Other Respiratory History: fx ribs and punctured lung from falling off a horse Gastrointestinal History: Reports: GERD Genitourinary History: Reports: None 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: Musculoskeletal History: Reports: Back Pain, Chronic, Fracture, Neck Pain, Chronic Other Musculoskeletal History: hx of fx ankle and ribs, has myofacial pain syndrome Neurological History: Reports: Neuropathy, Diabetic Other Neuro History: 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 Psychiatric History: Reports: Anxiety, Bipolar, Depression Endocrine/Metabolic History: Reports: Diabetes, Type I, Obesity/BMI 30+ Hematologic History: Reports: None Immunologic History: Reports: None Oncologic (Cancer) History: Reports: None Dermatologic History: Reports: None - Infectious Disease History Infectious Disease History: Reports: None, Chicken Pox - Past Surgical History Head Surgeries/Procedures: Reports: None HEENT Surgical History: Reports: None Cardiovascular Surgical History: Reports: None Respiratory Surgical History: Reports: Other (See Below) Other Respiratory Surgeries/Procedures: chest tube insertion GI Surgical History: Reports: Appendectomy Female Surgical History: Reports: Section, Other (See Below) Other Female Surgeries/Procedures: previous exc of hidrandenitits suppurativa on left side in 02/17 Endocrine Surgical History: Reports: None Neurological Surgical History: Reports: None Musculoskeletal Surgical History: Reports: None Oncologic Surgical History: Reports: None Dermatological Surgical History: Reports: None Social & Family History - Family History Family Medical History: Noncontributory - Tobacco Use Smoking Status *Q: Current Every Day Smoker Years of Tobacco use: 16 Packs/Tins Daily: 1 - Caffeine Use Caffeine Use: Reports: Soda - Recreational Drug Use Recreational Drug Use: No Review of Systems - Review of Systems Review Of Systems: ROS reveals no pertinent complaints other than HPI. ED EXAM, GENERAL - Physical Exam Exam: See Below (see Dictation) Course - Vital Signs Last Recorded V/S: Last Vital Signs Temp 35.6 C 11/03/18 18:21 Pulse 121 H 11/03/18 18:21 Resp 18 11/03/18 18:21 BP 145/83 H 11/03/18 18:21 Pulse Ox 96 11/03/18 18:21 - Orders/Labs/Meds Orders: Active Orders 24 hr Category Date Time Status Blood Glucose Check, Bedside [RC] ONETIME Care 11/03/18 18:33 Active CBC WITH AUTO DIFF [HEME] Stat Lab 11/03/18 18:48 Ordered COMPREHENSIVE METABOLIC PN,CMP [CHEM] Stat Lab 11/03/18 18:48 Ordered CPK [CREATINE KINASE,CK] [CHEM] Stat Lab 11/03/18 18:48 Ordered MAGNESIUM [CHEM] Stat Lab 11/03/18 18:48 Ordered Departure - Departure Time of Disposition: 19:25 Disposition: Home, Self-Care 01 Condition: Good Clinical Impression: Acute exacerbation of chronic low back pain Peripheral neuropathy Qualifiers: Peripheral neuropathy type: polyneuropathy, unspecified Qualified Code(s): G62.9 - Polyneuropathy, unspecified - Discharge Information Referrals: Segundo Covington MD [Primary Care Provider] - Additional Instructions: The following information is given to patients seen in the emergency department who are being discharged to home. This information is to outline your options for follow-up care. We provide all patients seen in our emergency department with a follow-up referral. The need for follow-up, as well as the timing and circumstances, are variable depending upon the specifics of your emergency department visit. If you don't have a primary care physician on staff, we will provide you with a referral. We always advise you to contact your personal physician following an emergency department visit to inform them of the circumstance of the visit and for follow-up with them and/or the need for any referrals to a consulting specialist. The emergency department will also refer you to a specialist when appropriate. This referral assures that you have the opportunity for followup care with a specialist. All of these measure are taken in an effort to provide you with optimal care, which includes your followup. Under all circumstances we always encourage you to contact your private physician who remains a resource for coordinating your care. When calling for followup care, please make the office aware that this follow-up is from your recent emergency room visit. If for any reason you are refused follow-up, please contact the [facility] emergency department at and ask to speak to the emergency department charge nurse. [address] [place] [address] Covington's office tomorrow and speak with either him or his nurse about your ED visit and need for follow-up and reevaluation of your care plan. He will need to address your need for further medications area please continue your home meds and add as needed and as prescribed. Please try to reduce the amount of ibuprofen [id number] your taking as we discussed. Return to ER as needed and as discussed - My Orders Last 24 Hours: My Active Orders 11/03/18 18:33 Blood Glucose Check, Bedside [RC] ONETIME 11/03/18 18:48 CBC WITH AUTO DIFF [HEME] Stat COMPREHENSIVE METABOLIC PN,CMP [CHEM] Stat CPK [CREATINE KINASE,CK] [CHEM] Stat MAGNESIUM [CHEM] Stat - Assessment/Plan Last 24 Hours: My Active Orders 11/03/18 18:33 Blood Glucose Check, Bedside [RC] ONETIME 11/03/18 18:48 CBC WITH AUTO DIFF [HEME] Stat COMPREHENSIVE METABOLIC PN,CMP [CHEM] Stat CPK [CREATINE KINASE,CK] [CHEM] Stat MAGNESIUM [CHEM] Stat
[2018-11-03] MEDS ORDERED: Acetaminophen/HYDROcodone 325-7.5 MG Tab PO ONE (19:12)
[2018-11-03 19:22] LABS: CHLORIDE,CL 105 mmol/L (98-107); SODIUM,NA 142 mmol/L (136-145)
[2018-11-03 19:35] VITALS: BP 143/98
== END 2018-11-03 19:35 | disposition home or self-care (01) ==
LOC: MW.ED 18:12
DX: G62.9 Polyneuropathy, unspecified (principal); M54.5 Low back pain; I10 Essential (primary) hypertension; E10.40 Type 1 diabetes mellitus with diabetic neuropathy, unspecified; F17.210 Nicotine dependence, cigarettes, uncomplicated; Z79.4 Long term (current) use of insulin; E66.9 Obesity, unspecified; Z90.49 Acquired absence of other specified parts of digestive tract
CPT/HCPCS: 36415; 80053; 82550; 82962; 83735; 85025; 99283; A9270

== ENCOUNTER 2019-01-14 08:44 | Emergency (ER) | payer BC ==
[2019-01-14 08:58] VITALS: BP 153/88; PULSE 95
--- NOTE | 2019-01-14 09:03 | EDM.PDOC ---
ED HPI GENERAL MEDICAL PROBLEM - General Chief Complaint: General Stated Complaint: COUGH Time Seen by Provider: 01/14/19 08:47 Source of Information: Reports: Patient History Limitations: Reports: No Limitations - History of Present Illness INITIAL COMMENTS - FREE TEXT/NARRATIVE: History of present illness: []Patient has had 5 days of cough, body aches, sore throat and chills. She denies any abdominal pain, nausea, vomiting or diarrhea. Patient has chronic leg pain due to neuropathy and complains of her usual pain. Review of systems: As per history of present illness and below otherwise all systems reviewed and negative. Past medical history: As per history of present illness and as reviewed below otherwise noncontributory. Surgical history: As per history of present illness and as reviewed below otherwise noncontributory. Social history: No reported history of drug or alcohol abuse. Family history: As per history of present illness and as reviewed below otherwise noncontributory. Physical exam: General: Well developed, well nourished in NAD HEENT: Atraumatic, normocephalic, pupils reactive, negative for conjunctival pallor or scleral icterus, mucous membranes moist, throat clear, no erythema, edema or exudate neck supple, nontender, trachea midline. TMs clear Lungs: Clear to auscultation, breath sounds equal bilaterally, chest nontender. No wheezing or rhonchi no chest wall retractions Heart: S1S2, regular, negative for clicks, rubs, or JVD. Abdomen: NABS, Soft, nondistended, nontender. Negative for masses or hepatosplenomegaly. Negative for costovertebral tenderness. Pelvis: Stable nontender. Genitourinary: Deferred. Rectal: Deferred. Extremities: Atraumatic, negative for cords or calf pain. Neurovascular unremarkable. Neuro: Awake, alert, oriented. Cranial nerves II through XII unremarkable. Cerebellum unremarkable. Motor and sensory unremarkable throughout. Exam nonfocal. Skin:warm and dry Diagnostics: Influenza-neg Therapeutics: None ED Course: Stable Impression: Viral URI with cough Prescriptions: Albuterol prednisone Plan: Follow-up with primary care Definitive disposition and diagnosis as appropriate pending reevaluation and review of above. Right Leg Pain Score (Numeric/FACES): 8 - Related Data Allergies Allergy/AdvReac Type Severity Reaction Status Date / Time No Known Allergies Allergy Verified 01/14/19 08:58 Home Meds: Home Meds Insulin Aspart [NovoLOG] 1 injection SQ ASDIRECTED 02/26/16 [History] Losartan Potassium 1 tab PO QAM 02/26/16 [History] Zolpidem Tartrate 1 tab PO BEDTIME 02/26/16 [History] atorvaSTATin Calcium [Atorvastatin Calcium] 1 tab PO DAILY 02/26/16 [History] metFORMIN HCl [Glucophage] 1 tab PO BID 02/26/16 [History] traMADol HCl [Tramadol HCl] 1 tab PO ASDIRECTED PRN 12/03/16 [History] Albuterol [Ventolin HFA] 2 puff INH Q4HR PRN #1 inhaler 01/14/19 [Rx] Pregabalin [Lyrica] 75 mg PO TID 01/14/19 [History] predniSONE [Prednisone] 20 mg PO DAILY #5 tablet 01/14/19 [Rx] Past Medical History HEENT History: Reports: Other (See Below) Other HEENT History: has upper denture Cardiovascular History: Reports: High Cholesterol, Hypertension Respiratory History: Reports: Pneumothorax Other Respiratory History: fx ribs and punctured lung from falling off a horse Gastrointestinal History: Reports: GERD Genitourinary History: Reports: None 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: Musculoskeletal History: Reports: Back Pain, Chronic, Fracture, Neck Pain, Chronic Other Musculoskeletal History: hx of fx ankle and ribs, has myofacial pain syndrome Neurological History: Reports: Neuropathy, Diabetic Other Neuro History: 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 Psychiatric History: Reports: Anxiety, Bipolar, Depression Endocrine/Metabolic History: Reports: Diabetes, Type I, Obesity/BMI 30+ Hematologic History: Reports: None Immunologic History: Reports: None Oncologic (Cancer) History: Reports: None Dermatologic History: Reports: None - Infectious Disease History Infectious Disease History: Reports: None, Chicken Pox - Past Surgical History Head Surgeries/Procedures: Reports: None HEENT Surgical History: Reports: None Cardiovascular Surgical History: Reports: None Respiratory Surgical History: Reports: Other (See Below) Other Respiratory Surgeries/Procedures: chest tube insertion GI Surgical History: Reports: Appendectomy Female Surgical History: Reports: Section, Other (See Below) Other Female Surgeries/Procedures: previous exc of hidrandenitits suppurativa on left side in 02/17 Endocrine Surgical History: Reports: None Neurological Surgical History: Reports: None Musculoskeletal Surgical History: Reports: None Oncologic Surgical History: Reports: None Dermatological Surgical History: Reports: None Social & Family History - Family History Family Medical History: Noncontributory - Tobacco Use Smoking Status *Q: Current Every Day Smoker Years of Tobacco use: 6 Packs/Tins Daily: 0.5 - Caffeine Use Caffeine Use: Reports: Soda - Recreational Drug Use Recreational Drug Use: No ED ROS GENERAL - Review of Systems Review Of Systems: See Below ED EXAM, GENERAL - Physical Exam Exam: See Below Course - Vital Signs Last Recorded V/S: Last Vital Signs Temp 96.9 F 01/14/19 08:56 Pulse 95 01/14/19 08:56 Resp 18 01/14/19 08:56 BP 153/88 H 01/14/19 08:56 Pulse Ox 96 01/14/19 08:56 Departure - Departure Time of Disposition: 09:46 Disposition: Home, Self-Care 01 Condition: Good Clinical Impression: Viral URI with cough - Discharge Information *PRESCRIPTION DRUG MONITORING PROGRAM REVIEWED*: Not Applicable *COPY OF PRESCRIPTION DRUG MONITORING REPORT IN PATIENT BUNNY: Not Applicable Prescriptions: Albuterol [Ventolin HFA] 2 puff INH Q4HR PRN #1 inhaler PRN Reason: Shortness Of Breath predniSONE [Prednisone] 20 mg PO DAILY #5 tablet Instructions: Viral Respiratory Infection, [id number] Referrals: Segundo Covington MD [Primary Care Provider] - Forms: ED Department Discharge Additional Instructions: The following information is given to patients seen in the emergency department who are being discharged to home. This information is to outline your options for follow-up care. We provide all patients seen in our emergency department with a follow-up referral. The need for follow-up, as well as the timing and circumstances, are variable depending upon the specifics of your emergency department visit. If you don't have a primary care physician on staff, we will provide you with a referral. We always advise you to contact your personal physician following an emergency department visit to inform them of the circumstance of the visit and for follow-up with them and/or the need for any referrals to a consulting specialist. The emergency department will also refer you to a specialist when appropriate. This referral assures that you have the opportunity for follow-up care with a specialist. All of these measure are taken in an effort to provide you with optimal care, which includes your follow-up. Under all circumstances we always encourage you to contact your private physician who remains a resource for coordinating your care. When calling for follow-up care, please make the office aware that this follow-up is from your recent emergency room visit. If for any reason you are refused follow-up, please contact the [facility] Emergency Department at and asked to speak to the emergency department charge nurse. Take meds as directed, follow up with your primary care physician, return to ER if symptoms worsen or change. [facility] [address] [place] [id number]
== END 2019-01-14 11:38 | disposition home or self-care (01) ==
LOC: MW.ED 08:44
DX: J06.9 Acute upper respiratory infection, unspecified (principal); R05 Cough; I10 Essential (primary) hypertension; E78.00 Pure hypercholesterolemia, unspecified; E10.40 Type 1 diabetes mellitus with diabetic neuropathy, unspecified; E66.9 Obesity, unspecified; Z68.41 Body mass index [BMI] 40.0-44.9, adult; Z79.84 Long term (current) use of oral hypoglycemic drugs; Z79.899 Other long term (current) drug therapy
CPT/HCPCS: 87804; 99283

== ENCOUNTER 2019-02-02 06:34 | Emergency (ER) | payer BC ==
[2019-02-02 06:51] VITALS: BP 148/95; PULSE 91
--- NOTE | 2019-02-02 07:02 | EDM.PDOC ---
ED HPI GENERAL MEDICAL PROBLEM - General Chief Complaint: Lower Extremity Injury/Pain Stated Complaint: RT LEG HURTS Time Seen by Provider: 02/02/19 06:38 Source of Information: Reports: Patient History Limitations: Reports: No Limitations - History of Present Illness INITIAL COMMENTS - FREE TEXT/NARRATIVE: History of present illness: []Patient has a long history of chronic low back pain with right-sided sciatica and occasional left-sided sciatica. She states last night her pain worsened with right-sided pain radiating down her leg. She denies any new trauma or change in symptoms other than of flareup of her usual pain. She denies any incontinence or inability to ambulate. Patient follows up with Dr. Covington and has currently tramadol that she is not taking and has been treated with [place] in the past. Patient states she's been unable to sleep and wants something stronger for the pain. She has been worked up in the past and has an MRI. Patient states her glucoses have been running in the normal range. Review of systems: As per history of present illness and below otherwise all systems reviewed and negative. Past medical history: As per history of present illness and as reviewed below otherwise noncontributory. Surgical history: As per history of present illness and as reviewed below otherwise noncontributory. Social history: No reported history of drug or alcohol abuse. Family history: As per history of present illness and as reviewed below otherwise noncontributory. Physical exam: General: Well developed, well nourished in NAD HEENT: Atraumatic, normocephalic, pupils reactive, negative for conjunctival pallor or scleral icterus, mucous membranes moist, throat clear, neck supple, nontender, trachea midline. Lungs: Clear to auscultation, breath sounds equal bilaterally, chest nontender. Heart: S1S2, regular, negative for clicks, rubs, or JVD. Abdomen: NABS, Soft, nondistended, nontender. Negative for masses or hepatosplenomegaly. Negative for costovertebral tenderness. Pelvis: Stable nontender. Genitourinary: Deferred. Rectal: Deferred. Extremities: Atraumatic, negative for cords or calf pain. Neurovascular unremarkable. Neuro: Awake, alert, oriented. Cranial nerves II through XII unremarkable. Cerebellum unremarkable. Motor and sensory unremarkable throughout. Exam nonfocal. Straight leg raise negative, reflexes 2+ bilaterally patellar and Achilles, raises great toes. Skin:warm and dry Diagnostics: None Therapeutics: Norflex ED Course: Stable Impression: Chronic low back pain with right-sided sciatica Prescriptions: Medrol Dosepak, Flexeril Plan: Take meds as directed, follow up with your primary care physician, return to ER if symptoms worsen or change. Definitive disposition and diagnosis as appropriate pending reevaluation and review of above. left leg Pain Score (Numeric/FACES): 10 - Related Data Allergies Allergy/AdvReac Type Severity Reaction Status Date / Time No Known Allergies Allergy Verified 02/02/19 06:44 Home Meds: Home Meds Insulin Aspart [NovoLOG] 1 injection SQ ASDIRECTED 02/26/16 [History] Losartan Potassium 1 tab PO QAM 02/26/16 [History] Zolpidem Tartrate 1 tab PO BEDTIME 02/26/16 [History] atorvaSTATin Calcium [Atorvastatin Calcium] 1 tab PO DAILY 02/26/16 [History] metFORMIN HCl [Glucophage] 1 tab PO BID 02/26/16 [History] traMADol HCl [Tramadol HCl] 1 tab PO ASDIRECTED PRN 12/03/16 [History] Albuterol [Ventolin HFA] 2 puff INH Q4HR PRN #1 inhaler 01/14/19 [Rx] Pregabalin [Lyrica] 75 mg PO TID 01/14/19 [History] predniSONE [Prednisone] 20 mg PO DAILY #5 tablet 01/14/19 [Rx] Cyclobenzaprine [Flexeril] 10 mg PO BID PRN #12 tab 02/02/19 [Rx] methylPREDNISolone [Medrol] 4 mg PO ASDIRECTED #1 dosepk 02/02/19 [Rx] Past Medical History HEENT History: Reports: Other (See Below) Other HEENT History: has upper denture Cardiovascular History: Reports: High Cholesterol, Hypertension Respiratory History: Reports: Pneumothorax Other Respiratory History: fx ribs and punctured lung from falling off a horse Gastrointestinal History: Reports: GERD Genitourinary History: Reports: None 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: Musculoskeletal History: Reports: Back Pain, Chronic, Fracture, Neck Pain, Chronic Other Musculoskeletal History: hx of fx ankle and ribs, has myofacial pain syndrome Neurological History: Reports: Neuropathy, Diabetic Other Neuro History: 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 Psychiatric History: Reports: Anxiety, Bipolar, Depression Endocrine/Metabolic History: Reports: Diabetes, Type I, Obesity/BMI 30+ Hematologic History: Reports: None Immunologic History: Reports: None Oncologic (Cancer) History: Reports: None Dermatologic History: Reports: None - Infectious Disease History Infectious Disease History: Reports: Chicken Pox - Past Surgical History Head Surgeries/Procedures: Reports: None HEENT Surgical History: Reports: None Cardiovascular Surgical History: Reports: None Respiratory Surgical History: Reports: Other (See Below) Other Respiratory Surgeries/Procedures: chest tube insertion GI Surgical History: Reports: Appendectomy Female Surgical History: Reports: Section, Other (See Below) Other Female Surgeries/Procedures: previous exc of hidrandenitits suppurativa on left side in 02/17 Endocrine Surgical History: Reports: None Neurological Surgical History: Reports: None Musculoskeletal Surgical History: Reports: None Oncologic Surgical History: Reports: None Dermatological Surgical History: Reports: None Social & Family History - Family History Family Medical History: Noncontributory - Tobacco Use Smoking Status *Q: Current Every Day Smoker Years of Tobacco use: 15 Packs/Tins Daily: 1 - Caffeine Use Caffeine Use: Reports: Soda - Recreational Drug Use Recreational Drug Use: No Review of Systems - Review of Systems Review Of Systems: See Below ED EXAM, GENERAL - Physical Exam Exam: See Below Course - Vital Signs Last Recorded V/S: Last Vital Signs Temp 96.1 F 02/02/19 06:44 Pulse 91 02/02/19 06:44 Resp 18 02/02/19 06:44 BP 148/95 H 02/02/19 06:44 Pulse Ox 97 02/02/19 06:44 - Orders/Labs/Meds Meds: Medications Discontinued Medications Generic Name Dose Route Start Last Admin Trade Name Freq PRN Reason Stop Dose Admin Orphenadrine Citrate 60 mg 02/02/19 07:00 02/02/19 07:20 Norflex IM 60 mg Q12H HARVEY Administration Departure - Departure Time of Disposition: 07:40 Disposition: Home, Self-Care 01 Condition: Good Clinical Impression: Chronic right-sided low back pain with sciatica Qualifiers: Sciatica laterality: sciatica of right side Qualified Code(s): M54.41 - Lumbago with sciatica, right side - Discharge Information *PRESCRIPTION DRUG MONITORING PROGRAM REVIEWED*: No *COPY OF PRESCRIPTION DRUG MONITORING REPORT IN PATIENT BUNNY: No Prescriptions: Cyclobenzaprine [Flexeril] 10 mg PO BID PRN #12 tab PRN Reason: Pain methylPREDNISolone [Medrol] 4 mg PO ASDIRECTED #1 dosepk Instructions: Sciatica, [id number] Referrals: Segundo Covington MD [Primary Care Provider] - Forms: ED Department Discharge Additional Instructions: The following information is given to patients seen in the emergency department who are being discharged to home. This information is to outline your options for follow-up care. We provide all patients seen in our emergency department with a follow-up referral. The need for follow-up, as well as the timing and circumstances, are variable depending upon the specifics of your emergency department visit. If you don't have a primary care physician on staff, we will provide you with a referral. We always advise you to contact your personal physician following an emergency department visit to inform them of the circumstance of the visit and for follow-up with them and/or the need for any referrals to a consulting specialist. The emergency department will also refer you to a specialist when appropriate. This referral assures that you have the opportunity for follow-up care with a specialist. All of these measure are taken in an effort to provide you with optimal care, which includes your follow-up. Under all circumstances we always encourage you to contact your private physician who remains a resource for coordinating your care. When calling for follow-up care, please make the office aware that this follow-up is from your recent emergency room visit. If for any reason you are refused follow-up, please contact the [facility] Emergency Department at and asked to speak to the emergency department charge nurse. Take meds as directed, follow up with your primary care physician, return to ER if symptoms worsen or change. [facility] [address] [place] [id number]
== END 2019-02-02 07:40 | disposition home or self-care (01) ==
LOC: MW.ED 06:34
DX: M54.41 Lumbago with sciatica, right side (principal); I10 Essential (primary) hypertension; F17.210 Nicotine dependence, cigarettes, uncomplicated; E78.00 Pure hypercholesterolemia, unspecified; E10.40 Type 1 diabetes mellitus with diabetic neuropathy, unspecified; Z68.41 Body mass index [BMI] 40.0-44.9, adult; Z79.4 Long term (current) use of insulin; Z79.899 Other long term (current) drug therapy
CPT/HCPCS: 96372; 99283; J2360

== ENCOUNTER 2020-03-03 06:42 | Day surgery (SDC) | payer BC ==
[~2020-03-03 06:42] MED LIST changes: -Bupivacaine 0.25%/EPINEPHrine 1:200,000 10 ML SDV ONE
--- NOTE | 2020-03-03 07:20 | PCM.PREANE ---
Preanesthetic Assessment - Anesthesia/Transfusion/Family Hx Anesthesia History: Prior Anesthesia Without Reaction Family History of Anesthesia Reaction: No Transfusion History: No Prior Transfusion(s) Intubation History: Unknown - Review of Systems General: No Symptoms Pulmonary: No Symptoms Cardiovascular: No Symptoms Gastrointestinal: No Symptoms Neurological: No Symptoms Other: Reports: None - Physical Assessment Vital Signs: Last Vital Signs Temp 97.3 F 03/03/20 06:50 Pulse 100 03/03/20 06:50 Resp 16 03/03/20 06:50 BP 126/92 H 03/03/20 06:50 Pulse Ox 94 L 03/03/20 06:50 Height: 5 ft 9 in Weight: 146.964 kg ASA Class: 2 Mental Status: Alert & Oriented x3 Airway Class: Mallampati = 1 Dentition: Reports: Edentulous ROM/Head Extension: Full Lungs: Clear to Auscultation, Normal Respiratory Effort Cardiovascular: Regular Rate, Regular Rhythm - Lab Values: Laboratory Last Values Urine HCG, Qual NEGATIVE (NEGATIVE) 03/03/20 06:45 - Allergies Allergies/Adverse Reactions: Allergies Allergy/AdvReac Type Severity Reaction Status Date / Time No Known Allergies Allergy Verified 02/28/20 10:50 - Blood Blood Available: No - Anesthesia Plan Pre-Op Medication Ordered: None - Acknowledgements Anesthesia Type Planned: General Anesthesia Pt an Appropriate Candidate for the Planned Anesthesia: Yes Alternatives and Risks of Anesthesia Discussed w Pt/Guardian: Yes Pt/Guardian Understands and Agrees with Anesthesia Plan: Yes Additional Comments: PMH: anx/claustrophobia, bipolar, chr pain, hrn, rad, hx mrso PLAN: ga/lma, L lat decub. PreAnesthesia Questionnaire HEENT History: Reports: Other (See Below) Other HEENT History: has top and bottome denture Cardiovascular History: Reports: High Cholesterol, Hypertension Respiratory History: Reports: Pneumothorax Other Respiratory History: fx ribs and punctured lung from falling off a horse Gastrointestinal History: Reports: None Genitourinary History: Reports: None PLAYGROUND AIDE History: Reports: Musculoskeletal History: Reports: Back Pain, Chronic, Fracture, Neck Pain, Chronic Other Musculoskeletal History: hx of fx ankle and ribs, has myofacial pain syndrome Neurological History: Reports: Neuropathy, Diabetic Other Neuro History: 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 Psychiatric History: Reports: Anxiety, Bipolar, Depression, PTSD Endocrine/Metabolic History: Reports: Diabetes, Type I, Obesity/BMI 30+ Hematologic History: Reports: None Immunologic History: Reports: None Oncologic (Cancer) History: Reports: None Dermatologic History: Reports: Psoriasis Other Dermatologic History: hx MRSA, hx hidradentis suppurativa - Infectious Disease History Infectious Disease History: Reports: MRSA - Past Surgical History Head Surgeries/Procedures: Reports: None HEENT Surgical History: Reports: None Cardiovascular Surgical History: Reports: None Respiratory Surgical History: Reports: Other (See Below) Other Respiratory Surgeries/Procedures: chest tube insertion for collapsed lung due to fx ribs GI Surgical History: Reports: Appendectomy Female Surgical History: Reports: Section, Other (See Below) Other Female Surgeries/Procedures: previous exc of hidrandenitits suppurativa on left side Endocrine Surgical History: Reports: None Neurological Surgical History: Reports: None Musculoskeletal Surgical History: Reports: None Oncologic Surgical History: Reports: None Dermatological Surgical History: Reports: None - SUBSTANCE USE Tobacco Use Status *Q: Current Every Day Tobacco User Tobacco Use Within Last Twelve Months: Cigarettes - HOME MEDS Home Medications: Home Meds Insulin Aspart [NovoLOG] 1 injection SQ ASDIRECTED 02/26/16 [History] Losartan Potassium 100 mg PO QAM 02/26/16 [History] Zolpidem Tartrate 10 mg PO BEDTIME PRN 02/26/16 [History] atorvaSTATin Calcium [Atorvastatin Calcium] 20 mg PO BEDTIME 02/26/16 [History] metFORMIN HCl [Glucophage] 1,000 mg PO BID 02/26/16 [History] traMADol HCl [Tramadol HCl] 1 tab PO Q8HR PRN 12/03/16 [History] Albuterol [Ventolin HFA] 2 puff INH Q4HR PRN #1 inhaler 01/14/19 [Rx] Betamethasone Dipropionate [Diprolene 0.05% Lotion] 1 applic TOP ASDIRECTED PRN 02/28/20 [History] Calcipotriene [Dovonex 0.005% Crm] 1 applic TOP ASDIRECTED PRN 02/28/20 [History] Clobetasol [Clobetasol Propionate 0.05% Cream] 1 applic TOP ASDIRECTED PRN 02/28/20 [History] Desvenlafaxine [Desvenlafaxine ER] 100 mg PO DAILY 02/28/20 [History] Gabapentin [Neurontin] 300 mg PO TID 02/28/20 [History] Ibuprofen 2 tab PO ASDIRECTED PRN 02/28/20 [History] Lisdexamfetamine Dimesylate [Vyvanse] 50 mg PO DAILY 02/28/20 [History] [place] Carbonate 2 tab PO BID 02/28/20 [History] QUEtiapine Fumarate [Seroquel] 1 - 2 tab PO BEDTIME PRN 02/28/20 [History] traZODone HCl [Trazodone HCl] 100 mg PO BEDTIME PRN 02/28/20 [History] - CURRENT (IN HOUSE) MEDS Current Meds: Current Medications Lactated Ringer's (Ringers, Lactated) 1,000 mls @ 125 mls/hr IV ASDIRECTED HARVEY Discontinued Medications Cefazolin Sodium/Dextrose 2 gm (/ Premix) 50 mls @ 100 mls/hr IV ONETIME ONE Stop: 03/03/20 05:29
[2020-03-03] MEDS ORDERED: Octyl 2-Cyanoacrylate 1 Tube ONE (07:24)
[2020-03-03] MEDS ORDERED: Bupivacaine 25%/EPINEPHrine/PF 30 ML ONE (07:25)
[2020-03-03] MEDS ORDERED: Propofol 200 MG/20 ML SDV ONE (07:59)
[2020-03-03] MEDS ORDERED: fentaNYL 100 MCG/2 ML SDV ONE ×2 (08:00→08:23)
[2020-03-03] MEDS ORDERED: Midazolam 1 MG/ML 2 ML SDV ONE ×2 (08:00→08:50)
[2020-03-03] MEDS ORDERED: ceFAZolin/Dextrose,Iso-Osmotic 2 GM/50 ML Duplex Bag IV ONE (08:09)
[2020-03-03] MEDS ORDERED: Ondansetron 4 MG/2 ML SDV ONE (08:29)
[2020-03-03] MEDS ORDERED: Albuterol 0.083% 2.5 MG/3 ML Neb Soln NEB PRN (08:43)
[2020-03-03] MEDS ORDERED: HYDROmorphone 2 MG/ML Syringe IVPUSH PRN (08:43)
[2020-03-03] MEDS ORDERED: fentaNYL 100 MCG/2 ML SDV IVPUSH PRN (08:43)
[2020-03-03] MEDS ORDERED: Naloxone 0.4 MG/ML Syringe IVPUSH PRN (08:43)
[2020-03-03] MEDS ORDERED: Atropine 0.1 MG/ML 10 ML Syringe IVPUSH PRN ×2 (08:43)
[2020-03-03] MEDS ORDERED: 50% Dextrose in Water 50 ML Syringe IVPUSH PRN (08:43)
[2020-03-03] MEDS ORDERED: EPINEPHrine 1:10,000 1 MG/10 ML Syringe IVPUSH PRN (08:43)
[2020-03-03] MEDS ORDERED: Ondansetron 4 MG/2 ML SDV IVPUSH PRN (08:43)
[2020-03-03] MEDS ORDERED: Ketorolac 30 MG/ML SDV ONE (08:53)
--- NOTE | 2020-03-03 09:02 | PCM.OPNOTE ---
- General Post-Op/Procedure Note Findings: well encapsulated whitish mass behind R ear excised [id number] Pre Op Diagnosis: scalp mass Post-Op Diagnosis: Same Anesthesia Technique: General LMA Primary Surgeon: Leroy Yanes Pathology: sent Complications: None Condition: Good
[2020-03-03] MEDS ORDERED: Acetaminophen/oxyCODONE 325-5 MG Tab PO PRN (09:10)
--- NOTE | 2020-03-03 09:10 | PCM.POSTAN ---
POST ANESTHESIA ASSESSMENT - MENTAL STATUS Mental Status: Alert, Oriented - VITAL SIGNS Vital Signs: Last Vital Signs Temp 98.0 F 03/03/20 08:55 Pulse 104 H 03/03/20 09:06 Resp 20 03/03/20 09:06 BP 142/77 H 03/03/20 09:06 Pulse Ox 94 L 03/03/20 09:06 - RESPIRATORY Respiratory Status: Respiratory Rate WNL, Airway Patent, O2 Saturation Stable - CARDIOVASCULAR CV Status: Pulse Rate WNL, Blood Pressure Stable - GASTROINTESTINAL GI Status: No Symptoms - POST OP HYDRATION Hydration Status: Adequate & Stable
--- NOTE | 2020-03-03 09:11 | PCM48HPAN ---
Post Anesthesia Note - EVALUATION WITHIN 48HRS OF ANESTHETIC Vital Signs in Normal Range: Yes Patient Participated in Evaluation: Yes Respiratory Function Stable: Yes Airway Patent: Yes Cardiovascular Function Stable: Yes Hydration Status Stable: Yes Pain Control Satisfactory: Yes Nausea and Vomiting Control Satisfactory: Yes Mental Status Recovered: Yes Vital Signs: Last Vital Signs Temp 98.0 F 03/03/20 08:55 Pulse 104 H 03/03/20 09:06 Resp 20 03/03/20 09:06 BP 142/77 H 03/03/20 09:06 Pulse Ox 94 L 03/03/20 09:06
[2020-03-03 09:22] VITALS: PULSE 97
[2020-03-03 09:42] VITALS: BP 113/64
--- NOTE | 2020-03-03 11:31 | OR ---
SURGEON: Leroy Yanes MD DATE OF PROCEDURE: 03/03/2020 PREOPERATIVE DIAGNOSIS: Scalp mass. POSTOPERATIVE DIAGNOSIS: Scalp mass. PROCEDURE PERFORMED: Excisional biopsy. PRIMARY SURGEON: Leroy Yanes MD COMPLICATIONS: None. FINDINGS: A whitish mass, about the size of 12 x 12, well encapsulated, excised and sent for pathology. DESCRIPTION OF PROCEDURE: The patient was taken to the operating room and placed in a supine position. Upon induction of LMA, the patient's head was a little bit tilted toward the left. The mass was right behind the right ear. Using tape, the right ear, and the hair shaved and taped to aid in the exposure. An incision was made along the line of the ear after giving anesthetic lidocaine 1% with epi. Incision was made 4.1 cm and carefully dissected and exposed the mass. The mass was a well- encapsulated whitish mass about 12 x 12 mm. It was carefully dissected and squeezed out and sent for pathology. Good hemostasis achieved by the use of finger compression and the wound was closed with 4-0 Prolene simple interrupted and followed with appropriate dressing. The patient was awakened, extubated, and transferred to recovery room in a hemodynamically stable condition. The patient tolerated the procedure well. There were no intraoperative complications. Dr. Yanes was present through the whole procedure. KIMBERLY / MAYNOR /[id number]
== END 2020-03-03 09:50 | disposition home or self-care (01) ==
LOC: MW.SDS 06:42
PROVIDERS: ATTEND Surgery
DX: L72.11 Pilar cyst (principal); F41.9 Anxiety disorder, unspecified; G89.29 Other chronic pain; M79.18 Myalgia, other site; F32.9 Major depressive disorder, single episode, unspecified; I10 Essential (primary) hypertension; E78.00 Pure hypercholesterolemia, unspecified; E10.9 Type 1 diabetes mellitus without complications; Z79.899 Other long term (current) drug therapy; Z98.890 Other specified postprocedural states; Z87.891 Personal history of nicotine dependence
CPT/HCPCS: 11421; 81025; 88304; J0690; J1885; J2001; J2250; J2704; J7120; 00300; A9270-GY; J2405; J3010

== ENCOUNTER 2020-04-05 14:46 | Emergency (ER) | payer BC ==
[2020-04-05 15:00] VITALS: BP 166/75
--- NOTE | 2020-04-05 15:02 | EDM.PDOC ---
ED HPI GENERAL MEDICAL PROBLEM - General Chief Complaint: Lower Extremity Injury/Pain Stated Complaint: INJURY TO RIGHT KNEE Time Seen by Provider: 04/05/20 14:49 Source of Information: Reports: Patient History Limitations: Reports: No Limitations - History of Present Illness INITIAL COMMENTS - FREE TEXT/NARRATIVE: HISTORY AND PHYSICAL: History of present illness: Patient is a 39-year-old female who presents to the emergency room with complaints of right knee pain. She states she has had chronic back pain and knee pain for several years and has had several MRIs done of both of these due to chronic pain. She states that they have not found any significant reason for her pain and have put her on gabapentin and tramadol for her breakthrough pain. The patient states over the last 1 week she has had increased pain to her right knee and today felt a "pop" with medial discomfort with palpation. She states she does have a history of neuropathy to bilateral lower extremities, has the sensation when she squeezes her feet that she has "increased circulation". She is unable to tell if she has any worsening of the tingling sensation/numbness of lower extremities due to her neuropathy. She states she does have some discomfort that radiates from her back into her groin and down her leg which is also chronic. Review of systems: As per history of present illness and below otherwise all systems reviewed and negative. Past medical history: As per history of present illness and as reviewed below otherwise noncontributory. Surgical history: As per history of present illness and as reviewed below otherwise noncontributory. Social history: See social history for further information Family history: As per history of present illness and as reviewed below otherwise noncontributory. Physical exam: General: Well developed and well nourished. Alert and orientated x 3. Nontoxic in appearance and in no acute distress. Vital signs are stable and have been reviewed by me. Nursing notes were reviewed. HEENT: Atraumatic, normocephalic, pupils equal and reactive bilaterally, negative for conjunctival pallor or scleral icterus, mucous membranes moist, TMs normal bilaterally, throat clear, neck supple, nontender, trachea midline. No drooling or trismus noted. No meningeal signs. No hot potato voice noted. Lungs: Clear to auscultation, breath sounds equal bilaterally, chest nontender. Normal work of breathing, no accessory muscles used. Heart: S1S2, regular rate and rhythm without overt murmur Abdomen: Soft, nondistended, nontender. Negative for masses or hepatosplenomegaly. Negative for costovertebral tenderness. Pelvis: Stable nontender. Genitourinary: Deferred. Rectal: Deferred. Skin: Intact, warm, dry. No lesions or rashes noted. Hematologic: No petechiae or purpra. Mucosa appropriate color and normal nail bed color and refill. Extremities: Atraumatic, moves all extremities per self without difficulty or deficits, negative for cords or calf pain. She does have minimal tenderness with palpation over the medial aspect of the right knee. No knee instability and negative drawer test. No redness or soft tissue swelling is noted of the right lower extremity. Strong pedal and pretibial pulses bilaterally. Positive CMS with good cap refill bilaterally. Neurovascular unremarkable. Neuro: Awake, alert, oriented. Cranial nerves II through XII unremarkable. Cerebellum unremarkable. Motor and sensory unremarkable throughout. Exam nonfocal. Psychiatric: Mood and affect are appropriate. Normal thought process. Answering questions appropriately. Notes: X-ray shows soft tissue swelling of the medial right knee. No fractures are identified. Ultrasound shows no evidence of DVT or blood clot. I have talked with the patient about today's findings, in addition to providing specific details for plan of care. Will put patient on crutches to be nonweightbearing over the next 4 to 5 days for a suspected MCL sprain. Reassessment at the time of disposition demonstrates that the patient is in no acute distress. The patient is stable for discharge, counseling was provided and we discussed in great detail signs and symptoms that would prompt them to return to the Emergency Department. Encouraged her to follow-up with Dr. Segundo Covington, her primary care provider or the orthopedic provider as she may need an MRI again in the future. Medication, follow up and supportive care measures were reviewed and discussed. Voices understanding and is agreeable to plan of care. Denies any further questions or concerns at this time. Diagnostics: Ultrasound, x-ray Therapeutics: Percocet, crutches Prescription: Minot (#20) Impression: Right knee sprain, medial Plan: 1. Today your ultrasound was normal (blood flow to the leg). X-ray shows no fractures but mild soft tissue swelling of the medial knee. I would like you to rest, ice, elevate and be non-weightbearing (use your crutches). 2. Take your medications as directed. I have prescribed a short amount of Minot, this medication is a narcotic and should NOT be combined with any of your other pain medications and/or alcohol. This medication may cause drowsiness so do not take it while driving or needing to be functioning outside of the house. 3. We encourage you to follow up with your primary care provider and/or recommended specialist in the next few days for re-evaluation and further care/management. You may need and MRI or orthopedic consult as we discussed. If your symptoms should worsen, new symptoms develop or any of the signs and symptoms we discussed should arise please return to the emergency room or call 911 (if needed). Definitive disposition and diagnosis as appropriate pending reevaluation and review of above. Right Knee Pain Score (Numeric/FACES): 8 - Related Data Allergies Allergy/AdvReac Type Severity Reaction Status Date / Time No Known Allergies Allergy Verified 04/05/20 14:56 Home Meds: Home Meds Insulin Aspart [NovoLOG] 1 injection SQ ASDIRECTED 02/26/16 [History] Losartan Potassium 100 mg PO QAM 02/26/16 [History] Zolpidem Tartrate 10 mg PO BEDTIME PRN 02/26/16 [History] atorvaSTATin Calcium [Atorvastatin Calcium] 20 mg PO BEDTIME 02/26/16 [History] metFORMIN HCl [Glucophage] 1,000 mg PO BID 02/26/16 [History] traMADol HCl [Tramadol HCl] 1 tab PO Q8HR PRN 12/03/16 [History] Albuterol [Ventolin HFA] 2 puff INH Q4HR PRN #1 inhaler 01/14/19 [Rx] Betamethasone Dipropionate [Diprolene 0.05% Lotion] 1 applic TOP ASDIRECTED PRN 02/28/20 [History] Calcipotriene [Dovonex 0.005% Crm] 1 applic TOP ASDIRECTED PRN 02/28/20 [History] Clobetasol [Clobetasol Propionate 0.05% Cream] 1 applic TOP ASDIRECTED PRN 02/28/20 [History] Desvenlafaxine [Desvenlafaxine ER] 100 mg PO DAILY 02/28/20 [History] Gabapentin [Neurontin] 300 mg PO TID 02/28/20 [History] Ibuprofen 2 tab PO ASDIRECTED PRN 02/28/20 [History] Lisdexamfetamine Dimesylate [Vyvanse] 50 mg PO DAILY 02/28/20 [History] Henry Carbonate 2 tab PO BID 02/28/20 [History] QUEtiapine Fumarate [Seroquel] 1 - 2 tab PO BEDTIME PRN 02/28/20 [History] traZODone HCl [Trazodone HCl] 100 mg PO BEDTIME PRN 02/28/20 [History] Hydrocodone/Acetaminophen [Hydrocodon-Acetaminoph 7.5-325] 1 each PO Q4HR PRN #20 tablet 04/05/20 [Rx] Past Medical History HEENT History: Reports: Other (See Below) Other HEENT History: has top and bottome denture Cardiovascular History: Reports: High Cholesterol, Hypertension Respiratory History: Reports: Pneumothorax Other Respiratory History: fx ribs and punctured lung from falling off a horse Gastrointestinal History: Reports: None Genitourinary History: Reports: None [employer] O[employer]ATOR History: Reports: Musculoskeletal History: Reports: Back Pain, Chronic, Fracture, Neck Pain, Chronic Other Musculoskeletal History: hx of fx ankle and ribs, has myofacial pain syndrome Neurological History: Reports: Neuropathy, Diabetic Other Neuro History: 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 Psychiatric History: Reports: Anxiety, Bipolar, Depression, PTSD Endocrine/Metabolic History: Reports: Diabetes, Type I, Obesity/BMI 30+ Hematologic History: Reports: None Immunologic History: Reports: None Oncologic (Cancer) History: Reports: None Dermatologic History: Reports: Psoriasis Other Dermatologic History: hx MRSA, hx hidradentis suppurativa - Infectious Disease History Infectious Disease History: Reports: MRSA - Past Surgical History Head Surgeries/Procedures: Reports: None HEENT Surgical History: Reports: None Cardiovascular Surgical History: Reports: None Respiratory Surgical History: Reports: Other (See Below) Other Respiratory Surgeries/Procedures: chest tube insertion for collapsed lung due to fx ribs GI Surgical History: Reports: Appendectomy Female Surgical History: Reports: Section, Other (See Below) Other Female Surgeries/Procedures: previous exc of hidrandenitits suppurativa on left side Endocrine Surgical History: Reports: None Neurological Surgical History: Reports: None Musculoskeletal Surgical History: Reports: None Oncologic Surgical History: Reports: None Dermatological Surgical History: Reports: None Social & Family History - Family History Family Medical History: No Pertinent Family History - Caffeine Use Caffeine Use: Reports: Soda Review of Systems - Review of Systems Review Of Systems: Comprehensive ROS is negative, except as noted in HPI. ED EXAM, GENERAL - Physical Exam Exam: See Below (See dictation) Course - Vital Signs Last Recorded V/S: Last Vital Signs Temp 99.4 F 04/05/20 14:56 Pulse 106 H 04/05/20 14:56 Resp 22 H 04/05/20 14:56 BP 166/75 H 04/05/20 14:56 Pulse Ox 96 04/05/20 14:56 - Orders/Labs/Meds Orders: Active Orders 24 hr Category Date Time Status DME for Discharge [COMM] Stat Oth 04/05/20 16:18 Ordered DME for Discharge [COMM] Stat Oth 04/05/20 16:40 Ordered Meds: Medications Discontinued Medications Generic Name Dose Route Start Last Admin Trade Name Freq PRN Reason Stop Dose Admin Oxycodone/Acetaminophen 1 tab 04/05/20 15:08 04/05/20 15:17 Percocet 325-5 Mg PO 04/05/20 15:09 1 tab ONETIME ONE Administration Departure - Departure Time of Disposition: 16:24 Disposition: Home, Self-Care 01 Clinical Impression: Knee MCL sprain Qualifiers: Encounter type: initial encounter Laterality: right Qualified Code(s): S83.411A - Sprain of medial collateral ligament of right knee, initial encounter - Discharge Information Prescriptions: Hydrocodone/Acetaminophen [Hydrocodon-Acetaminoph 7.5-325] 1 each PO Q4HR PRN #20 tablet PRN Reason: Pain Instructions: Knee Sprain, Adult, [id number] Referrals: Segundo Covington MD [Primary Care Provider] - Forms: ED Department Discharge Additional Instructions: The following information is given to patients seen in the emergency department who are being discharged to home. This information is to outline your options for follow-up care. We provide all patients seen in our emergency department with a follow-up referral. The need for follow-up, as well as the timing and circumstances, are variable depending upon the specifics of your emergency department visit. If you don't have a primary care physician on staff, we will provide you with a referral. We always advise you to contact your personal physician following an emergency department visit to inform them of the circumstance of the visit and for follow-up with them and/or the need for any referrals to a consulting specialist. The emergency department will also refer you to a specialist when appropriate. This referral assures that you have the opportunity for follow-up care with a specialist. All of these measure are taken in an effort to provide you with optimal care, which includes your follow-up. Under all circumstances we always encourage you to contact your private physician who remains a resource for coordinating your care. When calling for follow-up care, please make the office aware that this follow-up is from your recent emergency room visit. If for any reason you are refused follow-up, please contact the [facility] Emergency Department at and asked to speak to the emergency department charge nurse. [facility] [address] [place] [id number] [facility] [address] [place] [id number] Thank you for choosing the [facility] emergency department in [place] for your medical needs today. It was a pleasure caring for you. Today you were seen in the emergency department for knee pain. 1. Today your ultrasound was normal (blood flow to the leg). X-ray shows no fractures but mild soft tissue swelling of the medial knee. I would like you to rest, ice, elevate and be non-weightbearing (use your crutches). 2. Take your medications as directed. I have prescribed a short amount of Minot, this medication is a narcotic and should NOT be combined with any of your other pain medications and/or alcohol. This medication may cause drowsiness so do not take it while driving or needing to be functioning outside of the house. 3. We encourage you to follow up with your primary care provider and/or recommended specialist in the next few days for re-evaluation and further care/management. You may need and MRI or orthopedic consult as we discussed. If your symptoms should worsen, new symptoms develop or any of the signs and symptoms we discussed should arise please return to the emergency room or call 911 (if needed). Sepsis Event Note (ED) - Evaluation Sepsis Screening Result: No Definite Risk - Focused Exam Vital Signs: Vital Signs Temp Pulse Resp BP Pulse Ox 04/05/20 14:56 99.4 F 106 H 22 H 166/75 H 96 - My Orders Last 24 Hours: My Active Orders 04/05/20 16:18 DME for Discharge [COMM] Stat 04/05/20 16:40 DME for Discharge [COMM] Stat - Assessment/Plan Last 24 Hours: My Active Orders 04/05/20 16:18 DME for Discharge [COMM] Stat 04/05/20 16:40 DME for Discharge [COMM] Stat
[2020-04-05] MEDS ORDERED: Acetaminophen/oxyCODONE 325-5 MG Tab PO ONE (15:08)
--- NOTE | 2020-04-05 16:05 | US ---
INDICATION: Leg pain and swelling TECHNIQUE: Ultrasound venous duplex lower right extremity. Compression venous exam was performed using aguilera-scale, color Doppler, and spectral Doppler imaging. COMPARISON: None. FINDINGS: Sonographic imaging demonstrates the right common femoral, deep femoral, superficial femoral, popliteal, posterior tibial and greater saphenous and the contralateral left common femoral veins to be fully compressible with normal color Doppler blood flow. IMPRESSION: Normal right lower extremity venous ultrasound, no sign of deep venous thrombosis. Dictated by Angel Hi MD @ Apr 05 2020 4:04PM Signed by Dr. Angel Hi @ Apr 05 2020 4:05PM
--- NOTE | 2020-04-05 16:07 | CR ---
Indication: Groin pain Comparison: None available. Technique: AP, Lateral, and sunrise views right knee were obtained Findings: There is no displaced fracture or dislocation. There is mild early medial compartmental joint space narrowing. There is minimal marginal osteophyte formation at the patellofemoral compartment. There is mild medial superficial soft tissue swelling. There is no definite joint effusion. Impression: Mild early degenerative changes of the knee without acute osseous abnormality. Mild superficial soft tissue swelling of the medial knee. Dictated by Angel Hi MD @ Apr 05 2020 4:05PM Signed by Dr. Angel Hi @ Apr 05 2020 4:06PM
[2020-04-05 18:30] VITALS: PULSE 96
== END 2020-04-05 17:00 | disposition home or self-care (01) ==
LOC: MW.ED 14:46
DX: S83.411A Sprain of medial collateral ligament of right knee, initial encounter (principal); M54.9 Dorsalgia, unspecified; I10 Essential (primary) hypertension; E78.00 Pure hypercholesterolemia, unspecified; E66.9 Obesity, unspecified; F41.9 Anxiety disorder, unspecified; F31.9 Bipolar disorder, unspecified; E10.42 Type 1 diabetes mellitus with diabetic polyneuropathy; Z79.4 Long term (current) use of insulin; Z79.899 Other long term (current) drug therapy; Z68.42 Body mass index [BMI] 45.0-49.9, adult; X58.XXXA Exposure to other specified factors, initial encounter
CPT/HCPCS: 73562; 93971; 99284; A9270

== ENCOUNTER 2020-11-25 21:49 | Emergency (ER) | payer BC ==
[2020-11-25 22:38] VITALS: BP 146/92; PULSE 99
[2020-11-25] MEDS ORDERED: Dexamethasone 10 MG/ML SDV IM STA (22:41)
--- NOTE | 2020-11-25 22:43 | EDM.PDOC ---
ED HPI GENERAL MEDICAL PROBLEM - General Chief Complaint: General Stated Complaint: THROAT FEELS LIKE ITS SEWLLING Time Seen by Provider: 11/25/20 22:42 Source of Information: Reports: Patient History Limitations: Reports: No Limitations - History of Present Illness INITIAL COMMENTS - FREE TEXT/NARRATIVE: Patient is a 40-year-old female presents today for throat pain for the past 3 days. Patient dates that she became nervous today was using a piece of candy and felt her throat became tight about a minute and loosen up. She states having again times it was anything we felt her throat was tight for about a minute and she had a hard time breathing but when she calmed down is able to open up. Patient also reports a cough that she has had for the past few months that has been nonproductive but she is active smoker. She denies any shortness of breath chest pain no other complaints. Posterior Throat Pain Score (Numeric/FACES): 10 - Related Data Allergies Allergy/AdvReac Type Severity Reaction Status Date / Time No Known Allergies Allergy Verified 11/25/20 22:35 Home Meds: Home Meds Insulin Aspart [NovoLOG] 1 injection SQ ASDIRECTED 02/26/16 [History] Losartan Potassium 100 mg PO QAM 02/26/16 [History] Zolpidem Tartrate 10 mg PO BEDTIME PRN 02/26/16 [History] atorvaSTATin Calcium [Atorvastatin Calcium] 20 mg PO BEDTIME 02/26/16 [History] metFORMIN HCl [Glucophage] 1,000 mg PO BID 02/26/16 [History] traMADol HCl [Tramadol HCl] 1 tab PO Q8HR PRN 12/03/16 [History] Albuterol [Ventolin HFA] 2 puff INH Q4HR PRN #1 inhaler 01/14/19 [Rx] Betamethasone Dipropionate [Diprolene 0.05% Lotion] 1 applic TOP ASDIRECTED PRN 02/28/20 [History] Calcipotriene [Dovonex 0.005% Crm] 1 applic TOP ASDIRECTED PRN 02/28/20 [History] Clobetasol [Clobetasol Propionate 0.05% Cream] 1 applic TOP ASDIRECTED PRN 02/28/20 [History] Desvenlafaxine [Desvenlafaxine ER] 100 mg PO DAILY 02/28/20 [History] Gabapentin [Neurontin] 300 mg PO TID 02/28/20 [History] Ibuprofen 2 tab PO ASDIRECTED PRN 02/28/20 [History] Lisdexamfetamine Dimesylate [Vyvanse] 50 mg PO DAILY 02/28/20 [History] [place] Carbonate 2 tab PO BID 02/28/20 [History] QUEtiapine Fumarate [Seroquel] 1 - 2 tab PO BEDTIME PRN 02/28/20 [History] traZODone HCl [Trazodone HCl] 100 mg PO BEDTIME PRN 02/28/20 [History] Hydrocodone/Acetaminophen [Hydrocodon-Acetaminoph 7.5-325] 1 each PO Q4HR PRN #20 tablet 04/05/20 [Rx] Past Medical History HEENT History: Reports: Other (See Below) Other HEENT History: has top and bottome denture Cardiovascular History: Reports: High Cholesterol, Hypertension Respiratory History: Reports: Pneumothorax Other Respiratory History: fx ribs and punctured lung from falling off a horse Gastrointestinal History: Reports: None Genitourinary History: Reports: None [employer] History: Reports: Musculoskeletal History: Reports: Back Pain, Chronic, Fracture, Neck Pain, Chronic Other Musculoskeletal History: hx of fx ankle and ribs, has myofacial pain syndrome Neurological History: Reports: Neuropathy, Diabetic Other Neuro History: 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 Psychiatric History: Reports: Anxiety, Bipolar, Depression, PTSD Endocrine/Metabolic History: Reports: Diabetes, Type I, Obesity/BMI 30+ Hematologic History: Reports: None Immunologic History: Reports: None Oncologic (Cancer) History: Reports: None Dermatologic History: Reports: Psoriasis Other Dermatologic History: hx MRSA, hx hidradentis suppurativa - Infectious Disease History Infectious Disease History: Reports: Chicken Pox, MRSA - Past Surgical History Head Surgeries/Procedures: Reports: None HEENT Surgical History: Reports: None Cardiovascular Surgical History: Reports: None Respiratory Surgical History: Reports: Other (See Below) Other Respiratory Surgeries/Procedures: chest tube insertion for collapsed lung due to fx ribs GI Surgical History: Reports: Appendectomy Female Surgical History: Reports: Section, Other (See Below) Other Female Surgeries/Procedures: previous exc of hidrandenitits suppurativa on left side Endocrine Surgical History: Reports: None Neurological Surgical History: Reports: None Musculoskeletal Surgical History: Reports: None Oncologic Surgical History: Reports: None Dermatological Surgical History: Reports: None Social & Family History - Family History Family Medical History: No Pertinent Family History - Caffeine Use Caffeine Use: Reports: None - Recreational Drug Use Recreational Drug Use: No ED ROS GENERAL - Review of Systems Review Of Systems: See Below Constitutional: Reports: No Symptoms HEENT: Reports: Throat Pain Respiratory: Reports: Cough Cardiovascular: Reports: No Symptoms Endocrine: Reports: No Symptoms GI/Abdominal: Reports: No Symptoms : Reports: No Symptoms Musculoskeletal: Reports: No Symptoms Skin: Reports: No Symptoms Neurological: Reports: No Symptoms Psychiatric: Reports: No Symptoms Hematologic/Lymphatic: Reports: No Symptoms Immunologic: Reports: No Symptoms ED EXAM, GENERAL - Physical Exam Exam: See Below Exam Limited By: No Limitations General Appearance: Alert, WD/WN, No Apparent Distress Throat/Mouth: Normal Inspection, Normal Lips, Normal Teeth, Normal Oropharynx Respiratory/Chest: No Respiratory Distress, Crackles, Wheezing Cardiovascular: Normal Peripheral Pulses, Regular Rate, Rhythm GI/Abdominal: Normal Bowel Sounds, Soft, Non-Tender Extremities: Normal Inspection, Normal Range of Motion Neurological: Alert, Oriented, CN II-XII Intact Course - Vital Signs Last Recorded V/S: Last Vital Signs Temp 97.5 F 11/25/20 22:35 Pulse 99 11/25/20 22:35 Resp 18 11/25/20 22:35 BP 146/92 H 11/25/20 22:35 Pulse Ox 95 11/25/20 22:35 - Orders/Labs/Meds Labs: Laboratory Tests 11/25/20 Range/Units 22:45 Group A Strep (PCR) NOT DETECTED (NOT DETECT) Meds: Medications Discontinued Medications Generic Name Dose Route Start Last Admin Trade Name Do PRN Reason Stop Dose Admin Dexamethasone 10 mg 11/25/20 22:41 11/25/20 22:46 Dexamethasone 10 Mg/Ml Sdv IM 11/25/20 22:42 10 mg NOW STA Administration Departure - Departure Time of Disposition: 00:15 Disposition: Home, Self-Care 01 Condition: Good Clinical Impression: Throat pain in adult - Discharge Information *PRESCRIPTION DRUG MONITORING PROGRAM REVIEWED*: Not Applicable *COPY OF PRESCRIPTION DRUG MONITORING REPORT IN PATIENT BUNNY: Not Applicable Instructions: Sore Throat, [id number] Referrals: Segundo Covington MD [Primary Care Provider] - Forms: ED Department Discharge Additional Instructions: The following information is given to patients seen in the emergency department who are being discharged to home. This information is to outline your options for follow-up care. We provide all patients seen in our emergency department with a follow-up referral. The need for follow-up, as well as the timing and circumstances, are variable depending upon the specifics of your emergency department visit. If you don't have a primary care physician on staff, we will provide you with a referral. We always advise you to contact your personal physician following an emergency department visit to inform them of the circumstance of the visit and for follow-up with them and/or the need for any referrals to a consulting specialist. The emergency department will also refer you to a specialist when appropriate. This referral assures that you have the opportunity for follow-up care with a specialist. All of these measure are taken in an effort to provide you with optimal care, which includes your follow-up. Under all circumstances we always encourage you to contact your private physician who remains a resource for coordinating your care. When calling for follow-up care, please make the office aware that this follow-up is from your recent emergency room visit. If for any reason you are refused follow-up, please contact the [facility] Emergency Department at and asked to speak to the emergency department charge nurse. Please follow up with your primary care physician. If you do not have a primary care physician, see below: [facility] [address] [place] [id number] [facility] [address] [place] [address] You were seen today for throat pain. You do not have strep throat we tested it today we did give you Decadron was a steroid shot about your pain and swelling. We did x-ray which cleared not showing pneumonia. Have any other concerning signs or symptoms please return to ED or follow-up to primary care physician. Sepsis Event Note (ED) - Evaluation Sepsis Screening Result: No Definite Risk - Focused Exam Vital Signs: Vital Signs Temp Pulse Resp BP Pulse Ox 11/25/20 22:35 97.5 F 99 18 146/92 H 95 - Assessment/Plan Plan: Patient is a 40-year-old female presents today for throat pain and sensation in her throat closing up twice today that resolved without any intervention. She also has a cough and some wheezing on exam. Will obtain x-ray strep test and give Decadron reassess.
--- NOTE | 2020-11-26 00:10 | CR ---
Indication: Cough and wheezing Technique: Chest 2 views Comparison: Chest x-ray 04/28/2018 Findings/Impression: Cardiovascular and mediastinum: Heart size and vasculature are normal in caliber and appearance. Mediastinum is within normal limits. Lungs and pleural spaces: No pleural effusion or pneumothorax. Bilateral bronchial wall thickening with some interstitial haziness surrounding the bronchi which can be seen in a bronchitis or interstitial pneumonia. Bones and soft tissues: No significant findings. Dictated by Taurus Moore MD @ 11/26/2020 12:10:[address] Taurus Moore @ Nov 26 2020 12:10AM
== END 2020-11-26 00:21 | disposition home or self-care (01) ==
LOC: MW.ED 21:49
DX: R07.0 Pain in throat (principal); E78.00 Pure hypercholesterolemia, unspecified; I10 Essential (primary) hypertension; E10.40 Type 1 diabetes mellitus with diabetic neuropathy, unspecified; F17.200 Nicotine dependence, unspecified, uncomplicated; E66.9 Obesity, unspecified; Z68.42 Body mass index [BMI] 45.0-49.9, adult; Z79.84 Long term (current) use of oral hypoglycemic drugs; Z79.899 Other long term (current) drug therapy
CPT/HCPCS: 71046; 87651; 96372; 99283; J1100

== ENCOUNTER 2021-03-06 16:28 | Emergency (ER) | payer BC ==
--- NOTE | 2021-03-06 17:06 | EDM.PDOC ---
ED HPI GENERAL MEDICAL PROBLEM - General Chief Complaint: Lower Extremity Injury/Pain Stated Complaint: RT LEG AND ANKLE PAIN Time Seen by Provider: 03/06/21 16:36 Source of Information: Reports: Patient History Limitations: Reports: No Limitations - History of Present Illness INITIAL COMMENTS - FREE TEXT/NARRATIVE: Presents reporting right lower leg and foot pain for the last week and a half. The patient states she has worsening burning, bone crushing pain in the right foot and lower leg. Some calf tenderness and pain but worse "as you go down into the foot". Dorsal foot the worst. She did see her primary 1 week ago. The redness is worse now. No fever, shortness of breath, headache. Patient states that her feet are always swollen and they are actually better now. She does have some swelling in the right lower extremity but she states it is a "different type of swelling--like a tightness, hardness". She is an insulin- dependent diabetic. Most recent A1c 6.9. Blood sugars running between 100-200. No history of blood clots or DVT. She is morbidly obese. 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 Right Leg Pain Score (Numeric/FACES): 8 - Related Data Allergies Allergy/AdvReac Type Severity Reaction Status Date / Time No Known Allergies Allergy Verified 03/06/21 16:43 Home Meds: Home Meds Insulin Aspart [NovoLOG] 1 injection SQ ASDIRECTED 02/26/16 [History] Losartan Potassium 100 mg PO QAM 02/26/16 [History] Zolpidem Tartrate 10 mg PO BEDTIME PRN 02/26/16 [History] atorvaSTATin Calcium [Atorvastatin Calcium] 20 mg PO BEDTIME 02/26/16 [History] metFORMIN HCl [Glucophage] 1,000 mg PO BID 02/26/16 [History] traMADol HCl [Tramadol HCl] 1 tab PO Q8HR PRN 12/03/16 [History] Albuterol [Ventolin HFA] 2 puff INH Q4HR PRN #1 inhaler 01/14/19 [Rx] Betamethasone Dipropionate [Diprolene 0.05% Lotion] 1 applic TOP ASDIRECTED PRN 02/28/20 [History] Calcipotriene [Dovonex 0.005% Crm] 1 applic TOP ASDIRECTED PRN 02/28/20 [History] Clobetasol [Clobetasol Propionate 0.05% Cream] 1 applic TOP ASDIRECTED PRN 02/28/20 [History] Desvenlafaxine [Desvenlafaxine ER] 100 mg PO DAILY 02/28/20 [History] Gabapentin [Neurontin] 300 mg PO TID 02/28/20 [History] Ibuprofen 2 tab PO ASDIRECTED PRN 02/28/20 [History] Lisdexamfetamine Dimesylate [Vyvanse] 50 mg PO DAILY 02/28/20 [History] Spelter Carbonate 2 tab PO BID 02/28/20 [History] QUEtiapine Fumarate [Seroquel] 1 - 2 tab PO BEDTIME PRN 02/28/20 [History] traZODone HCl [Trazodone HCl] 100 mg PO BEDTIME PRN 02/28/20 [History] Hydrocodone/Acetaminophen [Hydrocodon-Acetaminoph 7.5-325] 1 each PO Q4HR PRN #20 tablet 04/05/20 [Rx] Hydrocodone/Acetaminophen [HYDROcodone-Acetaminophen 7.5-325 MG] 1 each PO Q8HR PRN #10 tablet 03/06/21 [Rx] cephALEXin [Keflex] 500 mg PO Q8H #30 cap 03/06/21 [Rx] cephALEXin [Keflex] 500 mg PO Q8H #30 cap 03/06/21 [Rx] Past Medical History HEENT History: Reports: Other (See Below) Other HEENT History: has top and bottome denture Cardiovascular History: Reports: High Cholesterol, Hypertension Respiratory History: Reports: Pneumothorax Other Respiratory History: fx ribs and punctured lung from falling off a horse Gastrointestinal History: Reports: None Genitourinary History: Reports: None [employer] History: Reports: Musculoskeletal History: Reports: Back Pain, Chronic, Fracture, Neck Pain, Chronic Other Musculoskeletal History: hx of fx ankle and ribs, has myofacial pain syndrome Neurological History: Reports: Neuropathy, Diabetic Other Neuro History: 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 Psychiatric History: Reports: Anxiety, Bipolar, Depression, PTSD Endocrine/Metabolic History: Reports: Diabetes, Type I, Obesity/BMI 30+ Hematologic History: Reports: None Immunologic History: Reports: None Oncologic (Cancer) History: Reports: None Dermatologic History: Reports: Psoriasis Other Dermatologic History: hx MRSA, hx hidradentis suppurativa - Infectious Disease History Infectious Disease History: Reports: Chicken Pox, MRSA - Past Surgical History Head Surgeries/Procedures: Reports: None HEENT Surgical History: Reports: None Cardiovascular Surgical History: Reports: None Respiratory Surgical History: Reports: Other (See Below) Other Respiratory Surgeries/Procedures: chest tube insertion for collapsed lung due to fx ribs GI Surgical History: Reports: Appendectomy Female Surgical History: Reports: Section, Other (See Below) Other Female Surgeries/Procedures: previous exc of hidrandenitits suppurativa on left side Endocrine Surgical History: Reports: None Neurological Surgical History: Reports: None Musculoskeletal Surgical History: Reports: None Oncologic Surgical History: Reports: None Dermatological Surgical History: Reports: None Social & Family History - Family History Family Medical History: No Pertinent Family History - Tobacco Use Second Hand Smoke Exposure: No - Caffeine Use Caffeine Use: Reports: None - Recreational Drug Use Recreational Drug Use: No Review of Systems - Review of Systems Review Of Systems: Comprehensive ROS is negative, except as noted in HPI. ED EXAM, GENERAL - Physical Exam Exam: See Below Exam Limited By: No Limitations General Appearance: Alert, Mild Distress (Due to pain) Ears: Normal External Exam Nose: Normal Inspection Throat/Mouth: Normal Inspection Head: Atraumatic, Normocephalic Neck: Normal Inspection Respiratory/Chest: No Respiratory Distress, Lungs Clear, Normal Breath Sounds Cardiovascular: Normal Peripheral Pulses, Regular Rate, Rhythm, Other (Well's Score 0) Peripheral Pulses: 1+: Posterior Tibial (L), Posterior Tibial (R), Dorsalis Pedis (L), Dorsalis Pedis (R) GI/Abdominal: Soft, Other (obese) Back Exam: Normal Inspection Extremities: Normal Inspection Neurological: Alert, Oriented Psychiatric: Normal Affect, Normal Mood Skin Exam: Warm, Dry, Intact, Other (Right mid calf band of redness with pink down to toes. 1+ pitting edema but same as left. Mild calf tenderness, much worse ankle and dorsal foot tenderness.) Course - Vital Signs Last Recorded V/S: Last Vital Signs Temp 36.6 C 03/06/21 16:40 Pulse 100 03/06/21 16:40 Resp 20 03/06/21 16:40 BP 150/85 H 03/06/21 16:40 Pulse Ox 95 03/06/21 16:40 - Orders/Labs/Meds Orders: Active Orders 24 hr Category Date Time Status Sodium Chloride 0.9% [Saline Flush] Med 03/06/21 17:09 Ordered 10 ml FLUSH ASDIRECTED PRN Sodium Chloride 0.9% [Saline Flush] Med 03/06/21 17:09 Ordered 2.5 ml FLUSH ASDIRECTED PRN Saline Lock Insert [OM.PC] Stat Oth 03/06/21 17:09 Ordered Medication Orders Sodium Chloride (Sodium Chloride 0.9% 10 Ml Syringe) 10 ml FLUSH ASDIRECTED PRN PRN Reason: Keep Vein Open Last Admin: 03/06/21 17:20 Dose: 10 ml Documented by: BRYN Sodium Chloride (Sodium Chloride 0.9% 2.5 Ml Syringe) 2.5 ml FLUSH ASDIRECTED PRN PRN Reason: Keep Vein Open Last Admin: 03/06/21 17:20 Dose: 2.5 ml Documented by: BRYN Labs: Laboratory Tests 03/06/21 03/06/21 03/06/21 Range/Units 17:11 17:11 17:11 WBC 10.87 (4.0-11.0) K/uL RBC 5.12 (4.30-5.90) M/uL Hgb 15.2 (12.0-16.0) g/dL Hct 46.5 H (36.0-46.0) % MCV 90.8 (80.0-98.0) fL MCH 29.7 (27.0-32.0) pg MCHC 32.7 (31.0-37.0) g/dL RDW Std Deviation 50.6 (28.0-62.0) fl RDW Coeff of Ivonne 15 (11.0-15.0) % Plt Count 236 (150-400) K/uL MPV 9.80 (7.40-12.00) fL Neut % (Auto) 76.0 (48.0-80.0) % Lymph % (Auto) 14.6 L (16.0-40.0) % Starr % (Auto) 8.3 (0.0-15.0) % Eos % (Auto) 1.0 (0.0-7.0) % Baso % (Auto) 0.1 (0.0-1.5) % Neut # (Auto) 8.3 H (1.4-5.7) K/uL Lymph # (Auto) 1.6 (0.6-2.4) K/uL Starr # (Auto) 0.9 H (0.0-0.8) K/uL Eos # (Auto) 0.1 (0.0-0.7) K/uL Baso # (Auto) 0.0 (0.0-0.1) K/uL Nucleated RBC % 0.0 /100WBC Nucleated RBCs # 0 K/uL D-Dimer, Quantitative 0.65 H (0.0-0.50) mg/L FEU Sodium 138 (136-145) mmol/L Potassium 3.9 (3.5-5.1) mmol/L Chloride 99 (98-107) mmol/L Carbon Dioxide 31.9 (21.0-32.0) mmol/L BUN 7 (7.0-18.0) mg/dL Creatinine 0.8 (0.6-1.0) mg/dL Est Cr Clr Drug Dosing 97.69 mL/min Estimated GFR (MDRD) > 60.0 ml/min Glucose 131 H (74-106) mg/dL Calcium 9.3 (8.5-10.1) mg/dL Total Bilirubin 0.3 (0.2-1.0) mg/dL AST 22 (15-37) IU/L ALT 46 (14-63) IU/L Alkaline Phosphatase 107 (46-116) U/L Total Protein 7.9 (6.4-8.2) g/dL Albumin 3.5 (3.4-5.0) g/dL Globulin 4.4 H (2.6-4.0) g/dL Albumin/Globulin Ratio 0.8 L (0.9-1.6) Urine Color Urine Appearance Urine pH (5.0-8.0) Ur Specific Mobile (1.001-1.035) Urine Protein (NEGATIVE) mg/dL Urine Glucose (UA) (NEGATIVE) mg/dL Urine Ketones (NEGATIVE) mg/dL Urine Occult Blood (NEGATIVE) Urine Nitrite (NEGATIVE) Urine Bilirubin (NEGATIVE) Urine Urobilinogen (<2.0) EU/dL Ur Leukocyte Esterase (NEGATIVE) Urine RBC (0-2/HPF) Urine WBC (0-5/HPF) Ur Epithelial Cells (NONE-FEW) Urine Bacteria (NEGATIVE) 03/06/21 Range/Units 17:15 WBC (4.0-11.0) K/uL RBC (4.30-5.90) M/uL Hgb (12.0-16.0) g/dL Hct (36.0-46.0) % MCV (80.0-98.0) fL MCH (27.0-32.0) pg MCHC (31.0-37.0) g/dL RDW Std Deviation (28.0-62.0) fl RDW Coeff of Ivonne (11.0-15.0) % Plt Count (150-400) K/uL MPV (7.40-12.00) fL Neut % (Auto) (48.0-80.0) % Lymph % (Auto) (16.0-40.0) % Starr % (Auto) (0.0-15.0) % Eos % (Auto) (0.0-7.0) % Baso % (Auto) (0.0-1.5) % Neut # (Auto) (1.4-5.7) K/uL Lymph # (Auto) (0.6-2.4) K/uL Starr # (Auto) (0.0-0.8) K/uL Eos # (Auto) (0.0-0.7) K/uL Baso # (Auto) (0.0-0.1) K/uL Nucleated RBC % /100WBC Nucleated RBCs # K/uL D-Dimer, Quantitative (0.0-0.50) mg/L FEU Sodium (136-145) mmol/L Potassium (3.5-5.1) mmol/L Chloride (98-107) mmol/L Carbon Dioxide (21.0-32.0) mmol/L BUN (7.0-18.0) mg/dL Creatinine (0.6-1.0) mg/dL Est Cr Clr Drug Dosing mL/min Estimated GFR (MDRD) ml/min Glucose (74-106) mg/dL Calcium (8.5-10.1) mg/dL Total Bilirubin (0.2-1.0) mg/dL AST (15-37) IU/L ALT (14-63) IU/L Alkaline Phosphatase (46-116) U/L Total Protein (6.4-8.2) g/dL Albumin (3.4-5.0) g/dL Globulin (2.6-4.0) g/dL Albumin/Globulin Ratio (0.9-1.6) Urine Color YELLOW Urine Appearance SLT CLOUDY Urine pH 5.5 (5.0-8.0) Ur Specific Mobile 1.010 (1.001-1.035) Urine Protein NEGATIVE (NEGATIVE) mg/dL Urine Glucose (UA) NEGATIVE (NEGATIVE) mg/dL Urine Ketones NEGATIVE (NEGATIVE) mg/dL Urine Occult Blood NEGATIVE (NEGATIVE) Urine Nitrite NEGATIVE (NEGATIVE) Urine Bilirubin NEGATIVE (NEGATIVE) Urine Urobilinogen 0.2 (<2.0) EU/dL Ur Leukocyte Esterase SMALL H (NEGATIVE) Urine RBC 0-2 (0-2/HPF) Urine WBC 5-10 (0-5/HPF) Ur Epithelial Cells FEW (NONE-FEW) Urine Bacteria FEW (NEGATIVE) Meds: Medications Generic Name Dose Route Start Last Admin Trade Name Freq PRN Reason Stop Dose Admin Sodium Chloride 10 ml 03/06/21 17:09 03/06/21 17:20 Sodium Chloride 0.9% 10 Ml Syringe FLUSH 10 ml ASDIRECTED PRN Administration Keep Vein Open Sodium Chloride 2.5 ml 03/06/21 17:09 03/06/21 17:20 Sodium Chloride 0.9% 2.5 Ml Syringe FLUSH 2.5 ml ASDIRECTED PRN Administration Keep Vein Open Discontinued Medications Generic Name Dose Route Start Last Admin Trade Name Freq PRN Reason Stop Dose Admin Enoxaparin Sodium 150 mg 03/06/21 19:03 Enoxaparin 150 Mg/1 Ml Syringe SUBCUT 03/06/21 19:04 ONETIME ONE Fentanyl 50 mcg 03/06/21 17:08 03/06/21 17:18 Fentanyl 50 Mcg/Ml Sdv IVPUSH 03/06/21 17:09 50 mcg ONETIME ONE Administration Ketorolac Tromethamine 30 mg 03/06/21 19:02 Ketorolac 30 Mg/Ml Sdv IVPUSH 03/06/21 19:03 ONETIME ONE - Re-Assessments/Exams Free Text/Narrative Re-Assessment/Exam: 03/06/21 19:[address] Lea Figueroa who also examined the patient. Lovenox 1 mg/kg. Ultrasound in a.m. with follow-up in primary care. Departure - Departure Time of Disposition: 19:18 Disposition: Home, Self-Care 01 Condition: Good Clinical Impression: DVT (deep venous thrombosis) Qualifiers: DVT location: lower extremity Affected thrombotic vein of extremity: unspecified vein of extremity Chronicity: acute Laterality: right Qualified Code(s): I82.401 - Acute embolism and thrombosis of unspecified deep veins of right lower extremity - Discharge Information Referrals: Segundo Covington MD [Primary Care Provider] - Forms: ED Department Discharge Additional Instructions: The following information is given to patients seen in the emergency department who are being discharged to home. This information is to outline your options for follow-up care. We provide all patients seen in our emergency department with a follow-up referral. The need for follow-up, as well as the timing and circumstances, are variable depending upon the specifics of your emergency department visit. If you don't have a primary care physician on staff, we will provide you with a referral. We always advise you to contact your personal physician following an emergency department visit to inform them of the circumstance of the visit and for follow-up with them and/or the need for any referrals to a consulting specialist. The emergency department will also refer you to a specialist when appropriate. This referral assures that you have the opportunity for follow-up care with a specialist. All of these measure are taken in an effort to provide you with optimal care, which includes your follow-up. Under all circumstances we always encourage you to contact your private physician who remains a resource for coordinating your care. When calling for follow-up care, please make the office aware that this follow-up is from your recent emergency room visit. If for any reason you are refused follow-up, please contact the [facility] Emergency Department at and asked to speak to the emergency department charge nurse. [address] [address] 1. You have an ultrasound of your right lower leg scheduled for tomorrow 03/07/2021 at 9am at [facility]. Check in at 8:30. 2. After your ultrasound, you must follow up with Dr. Segundo Covington tomorrow. 3. Take Keflex three times a day. 4. Return promptly for breathing problems, headache, weakness, speech or vision problems, fevers, elevated heart rate 5. Pain medication every 8 hours as needed. No driving or operating machinery with this medication. Sepsis Event Note (ED) - Evaluation Sepsis Screening Result: No Definite Risk - Focused Exam Vital Signs: Vital Signs Temp Pulse Resp BP Pulse Ox 03/06/21 16:40 36.6 C 100 20 150/85 H 95 - My Orders Last 24 Hours: My Active Orders 03/06/21 17:09 Sodium Chloride 0.9% [Saline Flush] 10 ml FLUSH ASDIRECTED PRN Sodium Chloride 0.9% [Saline Flush] 2.5 ml FLUSH ASDIRECTED PRN Saline Lock Insert [OM.PC] Stat - Assessment/Plan Last 24 Hours: My Active Orders 03/06/21 17:09 Sodium Chloride 0.9% [Saline Flush] 10 ml FLUSH ASDIRECTED PRN Sodium Chloride 0.9% [Saline Flush] 2.5 ml FLUSH ASDIRECTED PRN Saline Lock Insert [OM.PC] Stat
[2021-03-06] MEDS ORDERED: fentaNYL 50 MCG/ML SDV IVPUSH ONE (17:08)
[2021-03-06] MEDS ORDERED: Sodium Chloride 0.9% 10 ML Syringe FLUSH PRN (17:09)
[2021-03-06] MEDS ORDERED: Sodium Chloride 0.9% 2.5 ML Syringe FLUSH PRN (17:09)
[2021-03-06 17:38] LABS: BLOOD UREA NITROGEN,BUN 7 mg/dL (7.0-18.0); CARBON DIOXIDE,CO2 31.9 mmol/L (21.0-32.0); CHLORIDE,CL 99 mmol/L (98-107); GLUCOSE RANDOM 131 mg/dL (74-106); POTASSIUM,K 3.9 mmol/L (3.5-5.1); SODIUM,NA 138 mmol/L (136-145)
[2021-03-06] MEDS ORDERED: Ketorolac 30 MG/ML SDV IVPUSH ONE (19:02)
[2021-03-06] MEDS ORDERED: Enoxaparin 150 MG/1 ML Syringe SUBCUT ONE (19:03)
[2021-03-06 19:22] VITALS: BP 142/80; PULSE 94
== END 2021-03-06 19:40 | disposition home or self-care (01) ==
LOC: MW.ED 16:28
DX: I82.401 Acute embolism and thrombosis of unspecified deep veins of right lower extremity (principal); E78.00 Pure hypercholesterolemia, unspecified; I10 Essential (primary) hypertension; R60.0 Localized edema; E10.40 Type 1 diabetes mellitus with diabetic neuropathy, unspecified; E66.9 Obesity, unspecified; Z68.42 Body mass index [BMI] 45.0-49.9, adult; Z79.899 Other long term (current) drug therapy
CPT/HCPCS: 36415; 80053; 81001; 85025; 85379; 96372; 96374; 96375; 99283; J1650; J1885; J3010

== ENCOUNTER 2021-03-17 18:12 | Emergency (ER) | payer BC ==
[2021-03-17] MEDS ORDERED: Sodium Chloride 0.9% 10 ML Syringe FLUSH PRN (19:49)
[2021-03-17] MEDS ORDERED: Sodium Chloride 0.9% 2.5 ML Syringe FLUSH PRN (19:49)
[2021-03-17] MEDS ORDERED: diphenhydrAMINE 50 MG/ML SDV IVPUSH ONE (19:49)
--- NOTE | 2021-03-17 19:50 | EDM.PDOC ---
ED HPI GENERAL MEDICAL PROBLEM - General Chief Complaint: Skin Complaint Stated Complaint: RASH Time Seen by Provider: 03/17/21 19:16 Source of Information: Reports: Patient History Limitations: Reports: No Limitations - History of Present Illness INITIAL COMMENTS - FREE TEXT/NARRATIVE: HISTORY AND PHYSICAL: History of present illness: The patient is a 40-year-old female who presents to the emergency room with complaints of right hand thenar blister area with several red circular areas on her hand and bilateral ankles after starting on Bactrim on Friday. The patient states that about 10 days ago her right lower leg was extremely red and she presented to the emergency department and was prescribed antibiotics. She then went and saw her primary care who prescribed different antibiotics which was Bactrim on Sunday March 14, 2021, stating that he did not feel that the previous antibiotics were doing her job. The patient states 2 days after that, so approximately Tuesday, March 16, 2021, she noticed circular beefy red areas on her bilateral ankles right thumb thenar area, third finger, in dorsum of hand at the base of the thumb. The thenar area developed a blister type area. All areas are very itchy. The patient denies any fever. While the patient's tongue is red and dry she denies any pain or oral mucosal involvement. The patient has never had this previously. The patient denies any kind of occasions that could immunocompromise her her only health history is type 2 diabetes. The patient states otherwise she feels perfectly healthy and has no other complaints. Patient denies any fever, chills, headache, change in vision, syncope or near syncope. Denies any chest pain, back pain, shortness of breath or cough. Denies any abdominal pain, nausea, vomiting, diarrhea, constipation or dysuria. Has not noted any blood in urine or stool. Patient has been eating and drinking appropriately. Review of systems: As per history of present illness and below otherwise all systems reviewed and negative. Past medical history: As per history of present illness and as reviewed below otherwise noncontributory. Surgical history: As per history of present illness and as reviewed below otherwise noncontributory. Social history: See social history for further information Family history: As per history of present illness and as reviewed below otherwise noncontributory. Physical exam: General: Well developed and well nourished. Alert and orientated x 3. Nontoxic in appearance and in no acute distress. Vital signs are stable and have been reviewed by me. Nursing notes were reviewed. HEENT: Atraumatic, normocephalic, pupils equal and reactive bilaterally, negative for conjunctival pallor or scleral icterus, mucous membranes moist, TMs normal bilaterally, throat clear, neck supple, nontender, trachea midline. No drooling or trismus noted. No meningeal signs. No hot potato voice noted. Lungs: Clear to auscultation bilaterally. No wheezes, rales, or rhonchi. Chest nontender. Normal work of breathing, no accessory muscles used. Heart: S1S2, regular rate and rhythm without overt murmur, gallops, or rubs. No JVD. No peripheral edema Abdomen: Soft, nondistended, nontender. Normoactive bowel sounds. Negative for masses or costovertebral tenderness. Pelvis: Stable nontender. Genitourinary/Rectal: Deferred. Skin: Intact, warm, dry. 5 x 3 cm oval reddened target-like lesion with a fluid-filled grade center right thumb thenar area, third finger with approximate 1 cm diameter circular red macule, oval patch light red right medial distal palm, three macule reddened right dorsum of hand base of thumb, three reddened patch areas anterior base of right lower leg, and three patch reddened patch areas dorsum left foot. Hematologic: No petechiae or purpra. Mucosa appropriate color and normal nail bed color and refill. Extremities: Atraumatic, moves all extremities per self without difficulty or deficits, negative for cords or calf pain. Neurovascular unremarkable. Neuro: Awake, alert, oriented. Cranial nerves II through XII unremarkable. Cerebellum unremarkable. Motor and sensory unremarkable throughout. Exam nonfoca l. Psychiatric: Mood and affect are appropriate. Normal thought process. Answering questions appropriately. Notes: *This patient was seen and evaluated during the 2019 SARS-CoV-2 novel coronavirus pandemic period. Community viral transmission is ongoing at time of this encounter and the emergency department is operating under pandemic response procedures. Stated above the patient is a 40-year-old female who started to develop some red macular and patchy areas on her right hand, right lower leg, and left dorsum of foot approximately 2 days after starting Bactrim for a right lower leg infect ion. The patient states that when she started the antibiotic her leg was bright red however this has completely resolved. Her right thumb thenar area appears to be a target lesion. The patient has had no fever and the target lesion and other areas have started on her extremities suggesting this could be multiform erythema. The patient has no oral lesion involvement. The patient has an elevated white blood cell count, however her neutrophil rate is 68% indicating no infection. Platelet count is 273 and her CRP rate is 0.70. Her AST is 23 and her ALT is 38. The patient describes the areas as itchy and I have given her IV Benadryl. The patient states that this did not help as much. Topical moderate steroids are recommended for the itchiness of the multiform erythema areas. I have prescribed Triamcinolone acetonide 0.1% cream to apply to areas twice daily until resolved. I have gave the patient detailed instructions on when to return such as if she develops any oral mucosal involvement or any ulcers in her mouth or if areas developed in other areas. I consulted with on the case. The patient is agreeable with this discharge plan. I have talked with the patient about today's findings, in addition to providing specific details for plan of care. Reassessment at the time of disposition demonstrates that the patient is in no acute distress. The patient is stable for discharge, counseling was provided and we discussed in great detail signs and symptoms that would prompt them to return to the Emergency Department. Medication, follow up and supportive care measures were reviewed and discussed. Voices understanding and is agreeable to plan of care. Denies any further questions or concerns at this time. Diagnostics: CBC, CMP Therapeutics: Benadryl Prescription: Triamcinolone acetonide 0.1% cream to apply to areas twice daily Impression: multiform erythema Plan: 1. You were evaluated today on an emergent basis. Your red and circular areas on your right and left ankle areas in your right palm blister type area was evaluated with blood work was normal. And examination. This is most likely multiform erythema. You have no oral mucosal involvement and as such treatment is topical steroids for your areas of itchiness. I have prescribed Triamcinolone acetonide 0.1% cream to apply to areas twice daily until resolved. I have sent your prescription to the pharmacy and you can pick this up between the hours of noon and 5 tomorrow. You will need to stop any antibiotics and follow-up with your primary care. You might need no further antibiotics as your leg shows no signs of infection at this time. As we talked about if you get any oral lesions you need to return to the emergency department as you will need to be evaluated again. Mild oral lesions can be treated outpatient with steroids but they needed to be treated quickly. 2. You can alternate Tylenol and ibuprofen as needed for pain and fever management. 3. We encourage you to follow up with your primary care provider and/or recommended specialist in the next few days for re-evaluation and further care/management. 4. If your symptoms should worsen, new symptoms develop or any of the signs and symptoms we discussed should arise please return to the emergency room or call 911 (if needed). Definitive disposition and diagnosis as appropriate pending reevaluation and review of above. - Related Data Allergies Allergy/AdvReac Type Severity Reaction Status Date / Time No Known Allergies Allergy Verified 03/17/21 19:03 Home Meds: Home Meds Insulin Aspart [NovoLOG] 1 injection SQ ASDIRECTED 02/26/16 [History] Losartan Potassium 100 mg PO QAM 02/26/16 [History] Zolpidem Tartrate 10 mg PO BEDTIME PRN 02/26/16 [History] atorvaSTATin Calcium [Atorvastatin Calcium] 20 mg PO BEDTIME 02/26/16 [History] metFORMIN HCl [Glucophage] 1,000 mg PO BID 02/26/16 [History] traMADol HCl [Tramadol HCl] 1 tab PO Q8HR PRN 12/03/16 [History] Albuterol [Ventolin HFA] 2 puff INH Q4HR PRN #1 inhaler 01/14/19 [Rx] Betamethasone Dipropionate [Diprolene 0.05% Lotion] 1 applic TOP ASDIRECTED PRN 02/28/20 [History] Calcipotriene [Dovonex 0.005% Crm] 1 applic TOP ASDIRECTED PRN 02/28/20 [History] Clobetasol [Clobetasol Propionate 0.05% Cream] 1 applic TOP ASDIRECTED PRN 02/28/20 [History] Desvenlafaxine [Desvenlafaxine ER] 100 mg PO DAILY 02/28/20 [History] Gabapentin [Neurontin] 300 mg PO TID 02/28/20 [History] Ibuprofen 2 tab PO ASDIRECTED PRN 02/28/20 [History] Lisdexamfetamine Dimesylate [Vyvanse] 50 mg PO DAILY 02/28/20 [History] [place] Carbonate 2 tab PO BID 02/28/20 [History] QUEtiapine Fumarate [Seroquel] 1 - 2 tab PO BEDTIME PRN 02/28/20 [History] traZODone HCl [Trazodone HCl] 100 mg PO BEDTIME PRN 02/28/20 [History] Hydrocodone/Acetaminophen [Hydrocodon-Acetaminoph 7.5-325] 1 each PO Q4HR PRN #20 tablet 04/05/20 [Rx] Hydrocodone/Acetaminophen [HYDROcodone-Acetaminophen 7.5-325 MG] 1 each PO Q8HR PRN #10 tablet 03/06/21 [Rx] cephALEXin [Keflex] 500 mg PO Q8H #30 cap 03/06/21 [Rx] cephALEXin [Keflex] 500 mg PO Q8H #30 cap 03/06/21 [Rx] Triamcinolone Acetonide [Triamcinolone Acetonide 0.1% Crm] 1 applic TOP BID #30 gm 03/17/21 [Rx] Past Medical History HEENT History: Reports: Other (See Below) Other HEENT History: has top and bottome denture Cardiovascular History: Reports: High Cholesterol, Hypertension Respiratory History: Reports: Pneumothorax Other Respiratory History: fx ribs and punctured lung from falling off a horse Gastrointestinal History: Reports: None Genitourinary History: Reports: None 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: Musculoskeletal History: Reports: Back Pain, Chronic, Fracture, Neck Pain, Chr onic Other Musculoskeletal History: hx of fx ankle and ribs, has myofacial pain syndrome Neurological History: Reports: Neuropathy, Diabetic Other Neuro History: 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 Psychiatric History: Reports: Anxiety, Bipolar, Depression, PTSD Endocrine/Metabolic History: Reports: Diabetes, Type I, Obesity/BMI 30+ Hematologic History: Reports: None Immunologic History: Reports: None Oncologic (Cancer) History: Reports: None Dermatologic History: Reports: Psoriasis Other Dermatologic History: hx MRSA, hx hidradentis suppurativa - Infectious Disease History Infectious Disease History: Reports: Chicken Pox, MRSA - Past Surgical History Head Surgeries/Procedures: Reports: None HEENT Surgical History: Reports: None Cardiovascular Surgical History: Reports: None Respiratory Surgical History: Reports: Other (See Below) Other Respiratory Surgeries/Procedures: chest tube insertion for collapsed lung due to fx ribs GI Surgical History: Reports: Appendectomy Female Surgical History: Reports: Section, Other (See Below) Other Female Surgeries/Procedures: previous exc of hidrandenitits suppurativa on left side Endocrine Surgical History: Reports: None Neurological Surgical History: Reports: None Musculoskeletal Surgical History: Reports: None Oncologic Surgical History: Reports: None Dermatological Surgical History: Reports: None Social & Family History - Family History Family Medical History: No Pertinent Family History - Caffeine Use Caffeine Use: Reports: None - Recreational Drug Use Recreational Drug Use: No ED ROS GENERAL - Review of Systems Review Of Systems: Comprehensive ROS is negative, except as noted in HPI. ED EXAM, SKIN/RASH Exam: See Below (See dictation) Course - Vital Signs Last Recorded V/S: Last Vital Signs Temp 96.9 F 03/17/21 19:03 Pulse 76 03/17/21 21:16 Resp 18 03/17/21 21:16 BP 145/84 H 03/17/21 21:16 Pulse Ox 97 03/17/21 21:16 - Orders/Labs/Meds Orders: Active Orders 24 hr Category Date Time Status Saline Lock Insert [OM.PC] Stat Oth 03/17/21 19:49 Ordered Labs: Laboratory Tests 03/17/21 03/17/21 03/17/21 Range/Units 20:15 20:15 20:15 WBC 15.32 H (4.0-11.0) K/uL RBC 4.99 (4.30-5.90) M/uL Hgb 14.6 (12.0-16.0) g/dL Hct 45.1 (36.0-46.0) % MCV 90.4 (80.0-98.0) fL MCH 29.3 (27.0-32.0) pg MCHC 32.4 (31.0-37.0) g/dL RDW Std Deviation 50.6 (28.0-62.0) fl RDW Coeff of Ivonne 15 (11.0-15.0) % Plt Count 273 (150-400) K/uL MPV 10.20 (7.40-12.00) fL Add Manual Diff YES Neutrophils % (Manual) 68 (48.0-80.0) % Lymphocytes % (Manual) 23 (16.0-40.0) % Monocytes % (Manual) 8 (0.0-15.0) % Eosinophils % (Manual) 1 (0.0-7.0) % Nucleated RBC % 0.0 /100WBC Absolute Seg Neuts 10.4 H (1.4-5.7) Lymphocytes # (Manual) 3.5 H (0.6-2.4) Monocytes # (Manual) 1.2 H (0.0-0.8) Eosinophils # (Manual) 0.2 (0.0-0.7) Nucleated RBCs # 0 K/uL ESR 5 (0-19) mm/hr Sodium 136 (136-145) mmol/L Potassium 3.5 (3.5-5.1) mmol/L Chloride 102 (98-107) mmol/L Carbon Dioxide 28.8 (21.0-32.0) mmol/L BUN 10 (7.0-18.0) mg/dL Creatinine 0.9 (0.6-1.0) mg/dL Est Cr Clr Drug Dosing 86.84 mL/min Estimated GFR (MDRD) > 60.0 ml/min Glucose 90 (74-106) mg/dL Calcium 8.8 (8.5-10.1) mg/dL Total Bilirubin 0.2 (0.2-1.0) mg/dL AST 23 (15-37) IU/L ALT 38 (14-63) IU/L Alkaline Phosphatase 101 (46-116) U/L C-Reactive Protein 0.70 (0.00-0.90) mg/dL Total Protein 7.7 (6.4-8.2) g/dL Albumin 3.3 L (3.4-5.0) g/dL Globulin 4.4 H (2.6-4.0) g/dL Albumin/Globulin Ratio 0.8 L (0.9-1.6) SARS-CoV-2 RNA (KRYSTAL) (NEGATIVE) 03/17/21 Range/Units 20:36 WBC (4.0-11.0) K/uL RBC (4.30-5.90) M/uL Hgb (12.0-16.0) g/dL Hct (36.0-46.0) % MCV (80.0-98.0) fL MCH (27.0-32.0) pg MCHC (31.0-37.0) g/dL RDW Std Deviation (28.0-62.0) fl RDW Coeff of Ivonne (11.0-15.0) % Plt Count (150-400) K/uL MPV (7.40-12.00) fL Add Manual Diff Neutrophils % (Manual) (48.0-80.0) % Lymphocytes % (Manual) (16.0-40.0) % Monocytes % (Manual) (0.0-15.0) % Eosinophils % (Manual) (0.0-7.0) % Nucleated RBC % /100WBC Absolute Seg Neuts (1.4-5.7) Lymphocytes # (Manual) (0.6-2.4) Monocytes # (Manual) (0.0-0.8) Eosinophils # (Manual) (0.0-0.7) Nucleated RBCs # K/uL ESR (0-19) mm/hr Sodium (136-145) mmol/L Potassium (3.5-5.1) mmol/L Chloride (98-107) mmol/L Carbon Dioxide (21.0-32.0) mmol/L BUN (7.0-18.0) mg/dL Creatinine (0.6-1.0) mg/dL Est Cr Clr Drug Dosing mL/min Estimated GFR (MDRD) ml/min Glucose (74-106) mg/dL Calcium (8.5-10.1) mg/dL Total Bilirubin (0.2-1.0) mg/dL AST (15-37) IU/L ALT (14-63) IU/L Alkaline Phosphatase (46-116) U/L C-Reactive Protein (0.00-0.90) mg/dL Total Protein (6.4-8.2) g/dL Albumin (3.4-5.0) g/dL Globulin (2.6-4.0) g/dL Albumin/Globulin Ratio (0.9-1.6) SARS-CoV-2 RNA (KRYSTAL) NEGATIVE (NEGATIVE) Meds: Medications Discontinued Medications Generic Name Dose Route Start Last Admin Trade Name Freq PRN Reason Stop Dose Admin Diphenhydramine HCl 50 mg 03/17/21 19:49 03/17/21 20:17 Diphenhydramine 50 Mg/Ml Sdv IVPUSH 03/17/21 19:50 50 mg ONETIME ONE Administration Sodium Chloride 10 ml 03/17/21 19:49 03/17/21 20:17 Sodium Chloride 0.9% 10 Ml Syringe FLUSH 10 ml ASDIRECTED PRN Administration Keep Vein Open Sodium Chloride 2.5 ml 03/17/21 19:49 03/17/21 20:18 Sodium Chloride 0.9% 2.5 Ml Syringe FLUSH 2.5 ml ASDIRECTED PRN Administration Keep Vein Open Departure - Departure Time of Disposition: 21:50 Disposition: Home, Self-Care 01 Condition: Good Clinical Impression: Erythema multiforme - Discharge Information *PRESCRIPTION DRUG MONITORING PROGRAM REVIEWED*: Not Applicable *COPY OF PRESCRIPTION DRUG MONITORING REPORT IN PATIENT BUNNY: Not Applicable Prescriptions: Triamcinolone Acetonide [Triamcinolone Acetonide 0.1% Crm] 1 applic TOP BID #30 gm Instructions: Erythema Multiforme Referrals: Segundo Covington MD [Primary Care Provider] - Forms: ED Department Discharge Additional Instructions: The following information is given to patients seen in the emergency department who are being discharged to home. This information is to outline your options for follow-up care. We provide all patients seen in our emergency department with a follow-up referral. The need for follow-up, as well as the timing and circumstances, are variable depending upon the specifics of your emergency department visit. If you don't have a primary care physician on staff, we will provide you with a referral. We always advise you to contact your personal physician following an emergency department visit to inform them of the circumstance of the visit and f or follow-up with them and/or the need for any referrals to a consulting specialist. The emergency department will also refer you to a specialist when appropriate. This referral assures that you have the opportunity for follow-up care with a specialist. All of these measure are taken in an effort to provide you with optimal care, which includes your follow-up. Under all circumstances we always encourage you to contact your private physician who remains a resource for coordinating your care. When calling for follow-up care, please make the office aware that this follow-up is from your recent emergency room visit. If for any reason you are refused follow-up, please contact the [facility] Emergency Department at and asked to speak to the emergency department charge nurse. Josh Andrade [facility] - Primary Care [address] [place] [address] [id number] [facility] [address] [place] [id number] Plan: 1. You were evaluated today on an emergent basis. Your red and circular areas on your right and left ankle areas in your right palm blister type area was evaluated with blood work was normal. And examination. This is most likely multiform erythema. You have no oral mucosal involvement and as such treatment is topical steroids for your areas of itchiness. I have prescribed Triamcinolone acetonide 0.1% cream to apply to areas twice daily until resolved. I have sent your prescription to the pharmacy and you can pick this up between the hours of noon and 5 tomorrow. You will need to stop any antibiotics and follow-up with your primary care. You might need no further antibiotics as your leg shows no signs of infection at this time. As we talked about if you get any oral lesions you need to return to the emergency department as you will need to be evaluated again. Mild oral lesions can be treated outpatient with steroids but they needed to be treated quickly. 2. You can alternate Tylenol and ibuprofen as needed for pain and fever management. 3. We encourage you to follow up with your primary care provider and/or recommended specialist in the next few days for re-evaluation and further care/management. 4. If your symptoms should worsen, new symptoms develop or any of the signs and symptoms we discussed should arise please return to the emergency room or call 911 (if needed). - My Orders Last 24 Hours: My Active Orders 03/17/21 19:49 Saline Lock Insert [OM.PC] Stat - Assessment/Plan Last 24 Hours: My Active Orders 03/17/21 19:49 Saline Lock Insert [OM.PC] Stat
[2021-03-17 20:46] LABS: BLOOD UREA NITROGEN,BUN 10 mg/dL (7.0-18.0); CARBON DIOXIDE,CO2 28.8 mmol/L (21.0-32.0); CHLORIDE,CL 102 mmol/L (98-107); GLUCOSE RANDOM 90 mg/dL (74-106); POTASSIUM,K 3.5 mmol/L (3.5-5.1); SODIUM,NA 136 mmol/L (136-145)
[2021-03-17 21:17] VITALS: BP 145/84; PULSE 76
== END 2021-03-17 21:55 | disposition home or self-care (01) ==
LOC: MW.ED 18:12
DX: L51.9 Erythema multiforme, unspecified (principal); E78.00 Pure hypercholesterolemia, unspecified; I10 Essential (primary) hypertension; E10.9 Type 1 diabetes mellitus without complications; E66.9 Obesity, unspecified; Z68.42 Body mass index [BMI] 45.0-49.9, adult; Z79.899 Other long term (current) drug therapy; Z20.822 Contact with and (suspected) exposure to COVID-19
CPT/HCPCS: 36415; 80053; 85025; 85652; 86140; 87635; 96374; 99283; J1200; U0002

== ENCOUNTER 2021-05-17 18:38 | Emergency (ER) | payer BC ==
[2021-05-17] MEDS ORDERED: Acetaminophen/oxyCODONE 325-10 MG Tab PO ONE (20:48)
[2021-05-17 21:36] LABS: BLOOD UREA NITROGEN,BUN 10 mg/dL (7.0-18.0); CARBON DIOXIDE,CO2 28.5 mmol/L (21.0-32.0); CHLORIDE,CL 101 mmol/L (98-107); GLUCOSE RANDOM 234 mg/dL (74-106); POTASSIUM,K 3.7 mmol/L (3.5-5.1); SODIUM,NA 139 mmol/L (136-145)
[2021-05-17] MEDS ORDERED: Cephalexin 500 MG Cap PO ONE (22:16)
[2021-05-17 22:27] VITALS: BP 148/63; PULSE 89
== END 2021-05-17 22:34 | disposition home or self-care (01) ==
LOC: MW.ED 18:38
DX: L03.115 Cellulitis of right lower limb (principal); E10.40 Type 1 diabetes mellitus with diabetic neuropathy, unspecified; E78.00 Pure hypercholesterolemia, unspecified; I10 Essential (primary) hypertension; E66.9 Obesity, unspecified; Z68.42 Body mass index [BMI] 45.0-49.9, adult; Z88.2 Allergy status to sulfonamides; Z79.899 Other long term (current) drug therapy
CPT/HCPCS: 36415; 73610; 80048; 84550; 85025; 85652; 99283; A9270

== ENCOUNTER 2021-08-11 11:15 | Emergency (ER) | payer OTHER, BC ==
[2021-08-11] MEDS ORDERED: Morphine 4 MG/ML VIAL IM ONE (11:21)
[2021-08-11] MEDS ORDERED: Ibuprofen 600 MG Tab PO ONE (13:17)
[2021-08-11 14:03] VITALS: BP 152/78; PULSE 93
== END 2021-08-11 14:01 | disposition home or self-care (01) ==
LOC: MW.ED 11:15
DX: M23.91 Unspecified internal derangement of right knee (principal); I10 Essential (primary) hypertension; E78.00 Pure hypercholesterolemia, unspecified; F41.9 Anxiety disorder, unspecified; F32.A Depression, unspecified; E10.9 Type 1 diabetes mellitus without complications; E66.9 Obesity, unspecified; Z68.42 Body mass index [BMI] 45.0-49.9, adult; Z79.899 Other long term (current) drug therapy; Z88.2 Allergy status to sulfonamides
CPT/HCPCS: 73552; 73562; 73590; 96372; 99283; A9270; J2270; 99282

== ENCOUNTER 2021-11-27 10:28 | Emergency (ER) | payer BC, OTHER ==
[2021-11-27] MEDS ORDERED: Ketorolac 60 MG/2 ML SDV IM ONE (10:45)
[2021-11-27] MEDS ORDERED: Acetaminophen/oxyCODONE 325-5 MG Tab PO ONE (11:37)
[2021-11-27 13:52] VITALS: BP 142/65; PULSE 86
== END 2021-11-27 13:51 | disposition home or self-care (01) ==
LOC: MW.ED 10:28
DX: S99.911A Unspecified injury of right ankle, initial encounter (principal); E78.00 Pure hypercholesterolemia, unspecified; I10 Essential (primary) hypertension; E10.9 Type 1 diabetes mellitus without complications; E66.9 Obesity, unspecified; Z68.42 Body mass index [BMI] 45.0-49.9, adult; Z88.2 Allergy status to sulfonamides; W10.8XXA Fall (on) (from) other stairs and steps, initial encounter
CPT/HCPCS: 73610; 73630; 96372; 99283; A9270; J1885; 73620-RT

== ENCOUNTER 2023-10-09 17:03 | Emergency (ER) | payer BC ==
[2023-10-09 17:12] VITALS: BP 132/84; PULSE 104
[2023-10-09] MEDS: oxyCODONE 5 MG Tab PO ONE (17:21)
== END 2023-10-09 19:12 | disposition home or self-care (01) ==
LOC: MW.ED 17:03
DX: S69.92XA Unspecified injury of left wrist, hand and finger(s), initial encounter (principal); I10 Essential (primary) hypertension; E78.00 Pure hypercholesterolemia, unspecified; E10.9 Type 1 diabetes mellitus without complications; Z88.2 Allergy status to sulfonamides; Z79.4 Long term (current) use of insulin; Z79.899 Other long term (current) drug therapy; Z79.84 Long term (current) use of oral hypoglycemic drugs; W23.0XXA Caught, crushed, jammed, or pinched between moving objects, initial encounter; Y93.89 Activity, other specified
CPT/HCPCS: 73130; 99283; A9270

== ENCOUNTER 2024-01-21 09:45 | Emergency (ER) | payer BC ==
[2024-01-21] MEDS ORDERED: Sodium Chloride 0.9% 10 ML Syringe FLUSH PRN (10:05)
[2024-01-21] MEDS ORDERED: Sodium Chloride 0.9% 2.5 ML Syringe FLUSH PRN (10:05)
[2024-01-21] MEDS: Ketorolac 30 MG/ML SDV IVPUSH STA (10:11)
[2024-01-21] MEDS: Sodium Chloride 0.9% 1,000 ML IV STA (10:11)
[2024-01-21 10:19] LABS: BASOPHILS ABSOLUTE AUTO 0.02 K/uL (0.00-0.20); BASOPHILS PERCENT AUTO 0.2 % (0.0-1.0); EOSINOPHILS ABSOLUTE AUTO 0.08 K/uL (0.00-0.45); EOSINOPHILS PERCENT AUTO 0.7 % (0.0-6.0); HEMATOCRIT 40.5 % (37.0-47.0); HEMOGLOBIN 13.3 g/dL (12.0-16.0); IMMATURE GRAN ABSOLUTE AUTO 0.03 K/uL (0.00-0.05); IMMATURE GRAN PERCENT AUTO 0.3 % (0.0-0.4); LYMPHOCYTES ABSOLUTE AUTO 2.59 K/uL (1.00-4.80); LYMPHOCYTES PERCENT AUTO 23.9 % (24.0-44.0); MEAN CORPUSCULAR HEMOGLOBIN 29.5 pg (28.0-32.0); MEAN CORPUSCULAR HGB CONC 32.8 g/dL (32.0-36.0); MEAN CORPUSCULAR VOLUME 89.8 fL (83.0-99.0); MEAN PLATELET VOLUME 9.7 fL (9.4-12.3); MONOCYTES ABSOLUTE AUTO 0.77 K/uL (0.00-0.80); MONOCYTES PERCENT AUTO 7.1 % (0.0-8.0); NEUTROPHILS ABSOLUTE AUTO 7.33 K/uL (1.80-7.70); NEUTROPHILS PERCENT AUTO 67.8 % (41.0-71.0); PLATELET COUNT,PLT 256 K/uL (150-400); RED BLOOD CELL COUNT 4.51 M/uL (4.10-5.30); WHITE BLOOD CELL COUNT,WBC 10.82 K/uL (3.9-11.3)
[2024-01-21 10:40] LABS: A/G RATIO 1.1 (0.9-1.6); ALBUMIN 3.5 g/dL (3.4-5.0); BILIRUBIN TOTAL 0.3 mg/dL (0.2-1.0); CARBON DIOXIDE,CO2 34.5 mmol/L (21.0-32.0); CREATININE 0.8 mg/dL (0.6-1.0); EST CRCL DRUG DOSING (CG) 87.65 mL/min; POTASSIUM,K 4.1 mmol/L (3.5-5.1); PROTEIN TOTAL,TP 6.7 g/dL (6.4-8.2)
[2024-01-21] MEDS ORDERED: Naloxone 0.4 MG/ML SDV IVPUSH PRN (11:23)
[2024-01-21] MEDS: Iopamidol 755 MG/ML 500 ML Multipack Bottle IVPUSH STA (11:48)
[2024-01-21] MEDS: Morphine 4 MG/ML Syringe IVPUSH ONE ×2 (11:58→14:32)
[2024-01-21 12:05] LABS: APPEARANCE,URINE CLEAR; BILIRUBIN,URINE NEGATIVE (NEGATIVE); COLOR,URINE YELLOW; GLUCOSE,URINE NEGATIVE (NEGATIVE); KETONES,URINE NEGATIVE (NEGATIVE); LEUKOCYTE ESTERASE,URINE NEGATIVE (NEGATIVE); NITRITE,URINE NEGATIVE (NEGATIVE); OCCULT BLOOD,URINE NEGATIVE (NEGATIVE); PH,URINE 7.5 (5.0-8.0); PROTEIN,URINE NEGATIVE (NEGATIVE); UROBILINOGEN,URINE 0.2 EU/dL (<2.0)
[2024-01-21] MEDS: Sucralfate Suspension 1 GM/10 ML Cup PO ONE (14:36)
[2024-01-21 14:39] VITALS: BP 124/82; PULSE 86
== END 2024-01-21 14:45 | disposition left against medical advice (07) ==
LOC: MW.ED 09:45
DX: R10.12 Left upper quadrant pain (principal); I10 Essential (primary) hypertension; E78.00 Pure hypercholesterolemia, unspecified; E66.9 Obesity, unspecified; E10.9 Type 1 diabetes mellitus without complications; F17.210 Nicotine dependence, cigarettes, uncomplicated; Z90.49 Acquired absence of other specified parts of digestive tract; Z79.899 Other long term (current) drug therapy; Z79.4 Long term (current) use of insulin; Z79.891 Long term (current) use of opiate analgesic; Z88.2 Allergy status to sulfonamides
CPT/HCPCS: 36415; 71045; 74177; 80053; 81003; 83605; 83690; 84484; 84703; 85025; 93005; 96361; 96374; 96375; 96376; 99284; A9270; J1885; J2270; J7030; Q9967

== ENCOUNTER 2024-10-08 09:07 | Day surgery (SDC) | payer BC ==
[2024-10-08] MEDS ORDERED: Propofol 200 MG/20 ML SDV ONE (09:11)
[2024-10-08] MEDS ORDERED: Lidocaine 2% 5 ML SDV ONE (09:12)
[2024-10-08] MEDS: Lactated Ringers 1,000 ML IV SCH (09:42)
[2024-10-08] MEDS ORDERED: Lactated Ringers 1,000 ML IV SCH (10:15)
[2024-10-08 10:29] VITALS: BP 133/94; PULSE 67
== END 2024-10-08 10:40 | disposition home or self-care (01) ==
LOC: MW.SDS 09:07
PROVIDERS: ATTEND Surgery
DX: K29.50 Unspecified chronic gastritis without bleeding (principal); K29.00 Acute gastritis without bleeding; K31.89 Other diseases of stomach and duodenum; K20.90 Esophagitis, unspecified without bleeding; F17.210 Nicotine dependence, cigarettes, uncomplicated; E11.9 Type 2 diabetes mellitus without complications; E78.00 Pure hypercholesterolemia, unspecified; Z98.0 Intestinal bypass and anastomosis status; Z88.2 Allergy status to sulfonamides; Z79.899 Other long term (current) drug therapy
CPT/HCPCS: 00731; 81025; J2003; J2704; J7120